=== PATIENT | female | born 1985 | race Caucasian/White ===

== ENCOUNTER 2020-08-10 15:24 | Inpatient (IN) | payer MEDICAID, SELFPAY ==
--- NOTE | 2020-08-10 15:39 | XR_ITS ---
EXAMINATION: XR CHEST CLINICAL INFORMATION: Pain status post fall. COMPARISON: Chest radiographs dated 11/04/2019. TECHNIQUE: 2 views of the chest were obtained. FINDINGS: A prominent infiltrate/consolidation is seen inferiorly in the right upper lobe. A subtle opacity seen along the left cardiac margin. There are no pleural effusions. The heart and mediastinal structures are unremarkable. The osseous structures appear intact. XR/XR chest 2V IMPRESSION: 1. Prominent right upper lobe infiltrate was not seen previously. A small lingular infiltrate cannot be excluded. A follow-up chest radiograph following termination of treatment is recommended to assess for resolution.
--- NOTE | 2020-08-10 15:41 | ED.RECABL ---
HPI - Recheck/Abnormal Lab/Rx General Chief Complaint: Recheck/Abnormal Lab/Rx Stated Complaint: abnormal labs Time Seen by Provider: 08/10/20 15:28 Source: patient and EMS Mode of arrival: EMS Limitations: no limitations History of Present Illness HPI narrative: 34-year-old female with a past medical history of IVDA currently on methadone, iron deficiency anemia, TBI in 2004, HIV, depression here with abnormal labs. Patient tells me she was at [facility] for detox and was released today. She tells me that she had screening labs there which showed that her hemoglobin was low and she was sent to the emergency department for evaluation. She denies any black or bloody stools. Denies blood in the urine or hemoptysis. She does have heavy menses although irregular. 5-7 days of bleeding using a super tampon every 2 hours. tells me she has a history of iron deficiency anemia and has been on iron in the past but is not currently on iron. Denies shortness of breath, palpitations, weakness, dizziness. Of note, she has been off her biktarvey for 2-3 months. She did not restart this week d/t opiate withdrawal symptoms. She does have a PCP and plans to start CONCHIS. Labs reviewed. Hemoglobin this morning 7.7. Hematocrit 25.0. Hemoglobin 08/07 8.0 hematocrit 25.9 Patient also tells me she had a fall sometime in the last 2 weeks striking her right shoulder. No head injury at that time or LOC. C/o persistent right shoulder pain. Also notes feeling some right upper chest discomfort over the last week. Denies injury. Worsened with movement, deep breathing. Productive cough with green/brown sputum x 2-3 days. No fevers, chills, body aches. complaint: abnormal lab Initial visit (ago): day(s) Returns today for: called because of abnormal lab/test Symptoms since prior visit: no new symptoms Associated symptoms: none Related Data Allergies Allergy/AdvReac Type Severity Reaction Status Date / Time No Known Allergies Allergy Unverified 06/07/20 15:19 [No Known Allergies*] Review of Systems Review of Systems: Yes all other systems are reviewed and are negative Constitutional: Constitutional: Reports no additional constitutional complaints, Denies body ache(s), Denies chills, Denies fever(s), Denies headache(s) and Denies weakness Eyes: Eyes: Reports no additional eye complaints and Denies change in vision ENT: Reports system reviewed and no additional complaints, except as documented, Denies dizziness, Denies headache(s), Denies nasal congestion, Denies nasal discharge and Denies neck pain Cardiovascular: Cardiovascular: Reports no additional cardiovascular complaints, Denies chest pain, Denies leg edema and Denies dyspnea Respiratory: Respiratory: Reports no additional respiratory complaints, Denies cough and Denies dyspnea Gastrointestinal: Gastrointestinal: Reports no additional gastrointestinal complaints, Denies abdominal pain, Denies diarrhea, Denies nausea and Denies vomiting Genitourinary: Genitourinary: Reports no additional female genitourinary complaints and Denies urinary incontinence Musculoskeletal: Musculoskeletal: Reports no additional musculoskeletal complaints, Denies back pain, Denies arthralgias, Denies joint swelling, Denies neck pain, Denies numbness and Denies tingling Integumentary/Breasts: Skin/Breast: Reports system reviewed and no additional complaints, except as docu and Denies rash Neurologic: Reports system reviewed and no additional complaints, except as documented, Denies Abnormal speech present, Denies dizziness, Denies headache(s), Denies numbness, Denies tingling and Denies weakness PMFSH Past Medical History Attestation statement: The following information was validated with the patient. Source: obtained from family and nursing notes reviewed Medical History (Updated 08/10/20 @ 15:45 by Zoila Valerio NP) Anemia Depression HIV (human immunodeficiency virus infection) TBI (traumatic brain injury) Social History Social History Advance Directives: No Advance Directives Information Provided: Yes Physical Exam Vital Signs: Vital Signs: Last Vital Signs Temp 98.3 F 08/10/20 16:06 Pulse 117 H 08/10/20 16:06 Resp 18 08/10/20 16:06 BP 144/89 H 08/10/20 16:06 Pulse Ox 94 08/10/20 16:06 Body Mass Index 21.2 Const: General: cooperative, healthy appearing, comfortable and no acute distress Orientation/consciousness: patient oriented x3 Limitations: no limitations HENMT: Head: Yes normal to inspection Ears: hearing grossly normal bilaterally General nose exam: Normal external nose present Face and sinus: Yes normal facial exam Mouth: Normal oral and palatal mucosa present Throat: Yes posterior oropharynx normal Eyes: General: appearance normal, both eyes and all related structures Pupils: Equal, round and reactive pupils present Neck: Neck: Yes normal visual inspection Chest: Other: R anterior chest tender to palpate. No ecchymosis, deformity Chest palpation & inspection: normal inspection of the chest Resp: Effort & Inspection: normal respiratory effort Auscultation: clear to auscultation bilaterally Cardio: Rate: regular rate Rhythm: regular rhythm Peripheral pulses: Peripheral pulses 2+ throughout GI: Inspection: Yes normal to inspection Palpation (GI): Soft to palpation and nontender Auscultation: normal bowel sounds Back/Spine/Pelvis: Thoracic/Lumbar Spine: thoracic and lumbar spine normal to inspection Skin: General skin exam: no rashes or lesions noted Neuro: General: patient oriented x3, no focal motor deficits and normal sensation to monofilament Cranial nerves: Yes Equal, round and reactive pupils present Cognition (Neuro): normal cognition Speech: No Abnormal speech present Gait exam (Neuro): Normal gait present Motor exam (neuro): 5/5 motor strength present throughout Extrem: Other: 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 No obvious deformity, ecchymosis. Full range of motion General: Yes normal to inspection Course Course Course Narrative: patient sent from detox on discharge for low hemoglobin. Patient denies active bleeding. She tells me she has a history of iron deficiency anemia and was taking iron supplements until recently. Denies associated symptoms. Will repeat labs. The patient does tell me that she had several falls over the last few weeks to months and is complaining of some right-sided chest discomfort and right shoulder pain. Stable vital signs. No obvious ecchymosis or deformity. Will check x-rays. 1600- X-ray shows a right upper lobe infiltrate. At this time infection is suspected. Blood cultures and lactic acid ordered. Antibiotics ordered. [id number]-Sign out to Naomi YEBOAH pending ambulation trial, likely admission. MDM - Recheck/Abnormal Lab/Rx Medical Records Attestation: I reviewed the patient's medical records. Lab Data Attestation: I reviewed the patient's lab results. Result diagrams: 08/10/20 16:22 08/10/20 16:22 Labs: Lab Results 08/10/20 08/10/20 08/10/20 Range/Units 16:22 16:22 16:22 WBC 5.3 (4.8-10.8) X10*3/uL RBC 3.74 L (4.20-5.50) X10*6/uL Hgb 8.4 L (12.0-16.0) g/dl Hct 27.8 L (37-47) % MCV 74.3 L (80-98) fL MCH 22.5 L (27.0-33.0) pg MCHC 30.2 L (31.0-35.0) g/dl RDW 15.8 (11.0-16.0) % Plt Count 269 (160-400) X10*3/uL MPV 9.7 (9.4-12.3) fL Immature Gran % (Auto) 0.9 H (0.0-0.4) % Neut % (Auto) 78.4 H (45-73) % Lymph % (Auto) 13.9 L (20-40) % Sanborn % (Auto) 6.6 (2-11) % Eos % (Auto) 0.0 (0-4) % Baso % (Auto) 0.2 (0-2) % Lymph # (Auto) 0.7 L (1.2-4.9) X10*3/uL Sanborn # (Auto) 0.4 (0.1-1.2) X10*3/uL Eos # (Auto) 0.0 (0.0-0.4) X10*3/uL Baso # (Auto) 0.0 (0.0-0.2) X10*3/uL Abs Immat Gran (auto) 0.05 H (0.00-0.03) X10*3/uL Absolute Neuts (auto) 4.2 (2.0-8.3) X10*3/uL Absolute Nucleated RBC 0.000 (0.0-0.012) X10*3/uL Nucleated RBC % (auto) 0.0 (0.0-0.2) /100WBC PT 16.8 H (10.8-13.0) SEC INR 1.4 H (0.9-1.1) Sodium 130 L (135-145) mmol/L Potassium 4.6 (3.3-5.1) mmol/l Chloride 96 (96-108) mmol/L Carbon Dioxide 27 (22-29) mmol/L Anion Gap 12 (12-20) BUN 18 H (9-16) mg/dL Creatinine 0.79 (0.5-1.4) mg/dL Estim Creat Clear Calc 81.4 Estimated GFR > 60 Random Glucose 81 (60-115) mg/dL Lactic Acid (0.5-2.0) mmol/L Calcium 7.7 L (8.4-10.2) mg/dL Total Bilirubin 0.5 (0.0-1.0) mg/dL Direct Bilirubin 0.2 (0.0-0.5) mg/dL AST 25 (5-31) U/L ALT 15 (0-31) U/L Alkaline Phosphatase 134 H (39-117) U/L Total Protein 8.9 H (6.5-8.0) g/dL Albumin 2.6 L (3.5-5.0) g/dL 11/20/20 Range/Units 16:22 WBC (4.8-10.8) X10*3/uL RBC (4.20-5.50) X10*6/uL Hgb (12.0-16.0) g/dl Hct (37-47) % MCV (80-98) fL MCH (27.0-33.0) pg MCHC (31.0-35.0) g/dl RDW (11.0-16.0) % Plt Count (160-400) X10*3/uL MPV (9.4-12.3) fL Immature Gran % (Auto) (0.0-0.4) % Neut % (Auto) (45-73) % Lymph % (Auto) (20-40) % Sanborn % (Auto) (2-11) % Eos % (Auto) (0-4) % Baso % (Auto) (0-2) % Lymph # (Auto) (1.2-4.9) X10*3/uL Sanborn # (Auto) (0.1-1.2) X10*3/uL Eos # (Auto) (0.0-0.4) X10*3/uL Baso # (Auto) (0.0-0.2) X10*3/uL Abs Immat Gran (auto) (0.00-0.03) X10*3/uL Absolute Neuts (auto) (2.0-8.3) X10*3/uL Absolute Nucleated RBC (0.0-0.012) X10*3/uL Nucleated RBC % (auto) (0.0-0.2) /100WBC PT (10.8-13.0) SEC INR (0.9-1.1) Sodium (135-145) mmol/L Potassium (3.3-5.1) mmol/l Chloride (96-108) mmol/L Carbon Dioxide (22-29) mmol/L Anion Gap (12-20) BUN (9-16) mg/dL Creatinine (0.5-1.4) mg/dL Estim Creat Clear Calc Estimated GFR Random Glucose (60-115) mg/dL Lactic Acid 1.0 (0.5-2.0) mmol/L Calcium (8.4-10.2) mg/dL Total Bilirubin (0.0-1.0) mg/dL Direct Bilirubin (0.0-0.5) mg/dL AST (5-31) U/L ALT (0-31) U/L Alkaline Phosphatase (39-117) U/L Total Protein (6.5-8.0) g/dL Albumin (3.5-5.0) g/dL Imaging Data Chest x-ray: Attestation: I personally reviewed and interpreted this imaging study as follows: Radiologist's impression: XAMINATION: XR CHEST CLINICAL INFORMATION: Pain status post fall. COMPARISON: Chest radiographs dated 11/04/2019. TECHNIQUE: 2 views of the chest were obtained. FINDINGS: A prominent infiltrate/consolidation is seen inferiorly in the right upper lobe. A subtle opacity seen along the left cardiac margin. There are no pleural effusions. The heart and mediastinal structures are unremarkable. The osseous structures appear intact. XR/XR chest 2V IMPRESSION: 1. Prominent right upper lobe infiltrate was not seen previously. A small lingular infiltrate cannot be excluded. A follow-up chest radiograph following termination of treatment is recommended to assess for resolution.
--- NOTE | 2020-08-10 15:51 | XR_ITS ---
EXAMINATION: XR SHOULDER, RIGHT CLINICAL INFORMATION: Right shoulder pain status post fall. COMPARISON: None TECHNIQUE: AP external rotation, Grashey, scapular Y, and axillary views of the right shoulder. FINDINGS: There is no acute fracture or dislocation. The right glenohumeral and acromioclavicular joints are intact. The right clavicle is intact. The visualized right upper ribs are intact. An infiltrate is noted in the right upper lobe. XR/XR shoulder RT min 2V IMPRESSION: 1. Unremarkable right shoulder. 2. Right upper lobe infiltrate. Please refer to the report from chest radiographs from today for detailed findings.
[2020-08-10 16:06] VITALS: BP 144/89; PULSE 117; RESP 18; TEMP 36.8; O2SAT 94; BMI 21.2
[2020-08-10 16:28] LABS: MANUAL DIFF FLAG NO
[2020-08-10 16:31] LABS: Basophils Percent Auto 0.2 % (0-2); Hematocrit 27.8 % (37-47); Hemoglobin 8.4 g/dl (12.0-16.0); Imm Gran Abs Auto 0.05 X10*3/uL (0.00-0.03); Imm Gran Pct Auto 0.9 % (0.0-0.4); Lymphocytes Absolute Auto 0.7 X10*3/uL (1.2-4.9); Lymphocytes Percent Auto 13.9 % (20-40); Mean Corpuscular HGB Conc 30.2 g/dl (31.0-35.0); Mean Corpuscular Hemoglobin 22.5 pg (27.0-33.0); Mean Corpuscular Volume 74.3 fL (80-98); Mean Platelet Volume 9.7 fL (9.4-12.3); Monocytes Absolute Auto 0.4 X10*3/uL (0.1-1.2); Monocytes Percent Auto 6.6 % (2-11); Neutrophils Absolute Auto 4.2 X10*3/uL (2.0-8.3); Neutrophils Percent Auto 78.4 % (45-73); Platelet Count 269 X10*3/uL (160-400); Red Blood Count 3.74 X10*6/uL (4.20-5.50); Red Cell Distribution Width 15.8 % (11.0-16.0); White Blood Count 5.3 X10*3/uL (4.8-10.8)
[2020-08-10 16:34] LABS: INTERNATIONAL NORM RATIO 1.4 (0.9-1.1); Prothrombin Time 16.8 SEC (10.8-13.0)
[2020-08-10] MEDS: Piperacillin Sodium/Tazobactam 4.5 GM in 0.9 % Sodium Chloride 100 ML IV (16:55)
[2020-08-10 17:07] LABS: Alanine Aminotransferase 15 U/L (0-31); Albumin Level 2.6 g/dL (3.5-5.0); Alkaline Phosphatase 134 U/L (39-117); Anion Gap 12 (12-20); Aspartate Amino Transferase 25 U/L (5-31); Bilirubin Direct 0.2 mg/dL (0.0-0.5); Bilirubin Total 0.5 mg/dL (0.0-1.0); Blood Urea Nitrogen 18 mg/dL (9-16); Calcium 7.7 mg/dL (8.4-10.2); Carbon Dioxide 27 mmol/L (22-29); Chloride 96 mmol/L (96-108); Creatinine Clr Calc Pharmacy 81.4; Estimated Glomerular Filt Rate > 60; Glucose Random 81 mg/dL (60-115); Potassium 4.6 mmol/l (3.3-5.1); Sodium 130 mmol/L (135-145); Total Protein 8.9 g/dL (6.5-8.0)
[2020-08-10 17:13] LABS: COVID-19 Test Negative (Negative)
[2020-08-10] MEDS: vancomycin HCL 750 MG in 0.9 % Sodium Chloride 250 ML 265 MG IV (17:31)
[2020-08-10] MEDS: 0.9 % Sodium Chloride 1,000 ML 999 ML IV (17:32)
--- NOTE | 2020-08-10 19:04 | ECG_ITS ---
Test Reason : BASLINE TACHY Blood Pressure : / mmHG Vent. Rate : 101 BPM Atrial Rate : 101 BPM P-R Int : 154 ms QRS Dur : 084 ms QT Int : 344 ms P-R-T Axes : 048 035 038 degrees QTc Int : 446 ms Sinus tachycardia Otherwise normal ECG When compared with ECG of 06-JAN-2018 05:24, No significant change was found Heart rate has increased Referred By: Naomi Mcqueen Electronically Signed By:INDIRA ATKINSON MD
[2020-08-10 20:00] VITALS: BP 141/88; PULSE 105; RESP 18; TEMP 36.9; O2SAT 93
[2020-08-10 21:09] VITALS: BP 149/94; PULSE 98; RESP 18; TEMP 36.9; O2SAT 94
[2020-08-10] MEDS: Gabapentin 600 MG TABLET 1200 MG PO (22:21)
[2020-08-10 22:37] LABS: Adenovirus PCR Not Detected (Not Detect.); Bordetella parapertussis PCR Not Detected (Not Detect.); Bordetella pertussis PCR Not Detected (Not Detect.); Chlamydia pneumoniae PCR Not Detected (Not Detect.); Coronavirus 229E PCR Not Detected (Not Detect.); Coronavirus HKU1 PCR Not Detected (Not Detect.); Coronavirus NL63 PCR Not Detected (Not Detect.); Coronavirus OC43 PCR Not Detected (Not Detect.); Human metapneumovirus PCR Not Detected (Not Detect.); Influenza A PCR Not Detected (Not Detect.); Influenza B PCR Not Detected (Not Detect.); Mycoplasma pneumoniae PCR Not Detected (Not Detect.); Parainfluenza 1 PCR Not Detected (Not Detect.); Parainfluenza 2 PCR Not Detected (Not Detect.); Parainfluenza 3 PCR Not Detected (Not Detect.); Parainfluenza 4 PCR Not Detected (Not Detect.); RSV PCR Not Detected (Not Detect.); Rhino/Enterovirus PCR Not Detected (Not Detect.); SARS-CoV-2 PCR Not Detected (Not Detect.)
[2020-08-10 22:56] VITALS: BP 151/93; PULSE 95; RESP 18; TEMP 37.1; O2SAT 95
--- NOTE | 2020-08-10 23:29 | P.HPHOSP_ITS ---
History of Present Illness Date of Service: 08/10/20 Chief Complaint: SOB 34 y/o female with an extensive PMHX including HIV who presented from home due to SOB. Per history provided by the patient, for the past 1 week has been having a right upper chest discomfort, pressure like, none radiating, 5-6/10 in intensi ty, associated with a dry cough which is now productive, SOB and diarrhea. Patient denies any episodes of fever or chills, sick contacts or recent travel. Patient has a significant hx of multiple drug abuse including crack and marijuana. Was in detox for the past 5 days and was discharged today. On presentation to the ED patient was found to be initially tachycardic and hypertensive, now BP of 151/93 mmHg and HR of 95. Hgb of 8.4 with baseline of 10.4, Na of 130, CXR positive for RUL consolidation concerning for PNA. One dose of Zosyn and Rocephin were given per ED attending. Decision for admission given. Patient seen and examined at the bedside, laying down in bed in no acute distress. ROS as above otherwise negative. Physical exam positive for malnourished female, otherwise unremarkable. PMHX: HIV - non compliant, last CD4 161 on 11/10 anxiety HTN opiate dependence PSx: Right carpal tunnel release tonsillectomy Toxic habits: Reports smoking 1-3 cigarettes a day, Using marijuana and crack. No hx of alc ohol abuse Review of Systems Constitutional: Constitutional: Reports poor appetite ENT: Denies dizziness Cardiovascular: Cardiovascular: Reports dyspnea Respiratory: Respiratory: Reports cough and Reports dyspnea Gastrointestinal: Gastrointestinal: Reports diarrhea Musculoskeletal: Musculoskeletal: Denies numbness and Denies tingling Neurologic: Reports system reviewed and no additional complaints, except as documented, Denies Abnormal speech present, Denies dizziness, Denies numbness and Denies tingling [facility] Medical History (Updated 08/10/20 @ 23:46 by Dean Marquez MD) Anemia Depression HIV (human immunodeficiency virus infection) TBI (traumatic brain injury) Functional capacity: independent ambulation Family history: reviewed and not pertinent Social History Alcohol intake: never Smoking Status: Current every day smoker Use of substances other than those prescribed or required for medical reasons: Yes Substance Use Type: Crack/Cocaine and Heroin Substance Use Frequency: Chronic Longstanding Last Used Substance: Weeks (ago) Any prior treatment program specific to substance use: Yes Advance Directives: No Advance Directives Information Provided: Yes Meds Allergies Allergy/AdvReac Type Severity Reaction Status Date / Time No Known Allergies Allergy Unverified 06/07/20 15:19 [No Known Allergies*] Home Medications Medication Instructions Recorded Confirmed Type aripiprazole 15 mg PO DAILY 08/10/20 08/10/20 History baclofen 10 mg PO BID PRN 08/10/20 08/10/20 History ihpmmzjbi-hymgetjy-yhhwcee ala 1 tab PO DAILY 08/10/20 08/10/20 History [Biktarvy] cholecalciferol (vitamin D3) 50 mcg PO DAILY 08/10/20 08/10/20 History fluoxetine 10 mg PO DAILY 08/10/20 08/10/20 History fluoxetine 20 mg PO DAILY 08/10/20 08/10/20 History gabapentin 1,200 mg PO TID 08/10/20 08/10/20 History hydralazine 10 mg PO BID PRN 08/10/20 08/10/20 History hydroxyzine pamoate 25 mg PO BID PRN 08/10/20 08/10/20 History lisinopril 40 mg PO DAILY 08/10/20 08/10/20 History sulfamethoxazole-trimethoprim 1 tab PO 3XW 08/10/20 08/10/20 History [Bactrim DS] Physical Exam Vital Signs and Narrative: Vital Signs: Last Vital Signs Temp 98.7 F 08/10/20 22:56 Pulse 95 08/10/20 22:56 Resp 18 08/10/20 22:56 BP 151/93 H 08/10/20 22:56 Pulse Ox 95 08/10/20 22:56 Body Mass Index 21.2 Const: General: cooperative, comfortable and no acute distress Orientation/consciousness: oriented to person, oriented to place and oriented to time HENMT: Head: Yes normal to inspection Eyes: General: appearance normal, both eyes and all related structures Neck: Yes normal visual inspection Chest: Chest palpation & inspection: normal inspection of the chest Resp: Effort & Inspection: normal respiratory effort Cardio: Jugular venous distension: no JVD Rate: regular rate Rhythm: regular rhythm Heart sounds: S1 normal heart sound present and S2 normal heart sound present GI: Inspection: Yes normal to inspection Skin: General skin exam: no rashes or lesions noted Neuro: General: oriented to person, oriented to place and oriented to time Cognition (Neuro): normal cognition Speech: No Abnormal speech present Motor exam (neuro): 5/5 motor strength present throughout Extrem: General: Yes normal to inspection Results Labs CBC and Chem 7: 08/10/20 16:22 08/10/20 16:22 Labs: Laboratory Results - last 24 hr 08/10/20 08/10/20 08/10/20 16:22 16:22 16:22 MCV 74.3 L MCH 22.5 L MCHC 30.2 L RDW 15.8 Plt Count 269 MPV 9.7 Immature Gran % (Auto) 0.9 H Neut % (Auto) 78.4 H Lymph % (Auto) 13.9 L Gibson % (Auto) 6.6 Eos % (Auto) 0.0 Baso % (Auto) 0.2 Lymph # (Auto) 0.7 L Gibson # (Auto) 0.4 Eos # (Auto) 0.0 Baso # (Auto) 0.0 Abs Immat Gran (auto) 0.05 H Absolute Neuts (auto) 4.2 Absolute Nucleated RBC 0.000 Nucleated RBC % (auto) 0.0 PT 16.8 H INR 1.4 H Anion Gap 12 Estim Creat Clear Calc 81.4 Estimated GFR > 60 Random Glucose 81 Lactic Acid Calcium 7.7 L Total Bilirubin 0.5 Direct Bilirubin 0.2 AST 25 ALT 15 Alkaline Phosphatase 134 H Total Protein 8.9 H Albumin 2.6 L COVID-19 (TIKA) COVID-19 Clin Com 08/10/20 08/10/20 16:22 16:46 MCV MCH MCHC RDW Plt Count MPV Immature Gran % (Auto) Neut % (Auto) Lymph % (Auto) Gibson % (Auto) Eos % (Auto) Baso % (Auto) Lymph # (Auto) Gibson # (Auto) Eos # (Auto) Baso # (Auto) Abs Immat Gran (auto) Absolute Neuts (auto) Absolute Nucleated RBC Nucleated RBC % (auto) PT INR Anion Gap Estim Creat Clear Calc Estimated GFR Random Glucose Lactic Acid 1.0 Calcium Total Bilirubin Direct Bilirubin AST ALT Alkaline Phosphatase Total Protein Albumin COVID-19 (TIKA) Negative COVID-19 Clin Com See Note Imaging Radiologist's Impressions: Impressions Chest X-Ray 08/10/20 15:39 IMPRESSION: 1. Prominent right upper lobe infiltrate was not seen previously. A small lingular infiltrate cannot be excluded. A follow-up chest radiograph following termination of treatment is recommended to assess for resolution. Shoulder X-Ray 08/10/20 15:51 IMPRESSION: 1. Unremarkable right shoulder. 2. Right upper lobe infiltrate. Please refer to the report from chest radiographs from today for detailed findings. Assessment and Plan (1) CAP (community acquired pneumonia): Status: Acute Continue with Rocephin and Doxy for gram neg and atypical coverage Follow up respiratory panel Covid negative Follow up Bcx Infectious disease consult in the am (2) Anemia: Status: Inactive Hgb of 8.4 from 10 which might be related to hx of HIV follow up anemia work up. No evidence of bleeding at present (3) HIV (human immunodeficiency virus infection): Status: Inactive Not compliant with her medications follow up CD4 count in the am Infectious disease consult in the am continue with bactrim as PCP ppx (4) Hyponatremia: Status: Acute NA of 130 likely secondary to dehydration but could be a component of an atypical PNA Follow up NA level after hydration given in the ED and monitor closely (5) Uncontrolled hypertension: Status: Acute likely secondary to patient not been compliant with her meds resume home meds (6) Dementia: Status: Acute continue with aripiprazole home dose (7) Depression: Status: Inactive continue with fluoxetine home dose (reconcile with outpatient pharmacy the dose) (8) Muscle spasms of both lower extremities: Status: Acute continue with baclofen home dose
[2020-08-11] VITALS (7 sets, daily range): BP systolic 103–156; BP diastolic 71–88; PULSE 68–106; RESP 16–18; TEMP 36.4–37.1; O2SAT 91–96
--- NOTE | 2020-08-11 | CT_ITS ---
EXAMINATION: CT CHEST WITHOUT CONTRAST CLINICAL INFORMATION: Cough and shortness of breath. Right upper lobe opacity. COMPARISON: Most recent chest radiograph dated 08/10/[address] chest dated 11/09/2019. TECHNIQUE: Multidetector volumetric CT imaging of the chest was done. Axial MIP volume rendering provided. Sagittal and coronal reformatted images were obtained. This CT examination was performed using dose optimization techniques as appropriate, variously including the following: *Automated exposure control *Adjustment of mA and/or kV according to patient size (this includes techniques or standardized protocols for targeted exams where dose is matched to indication/reason for exam; i.e. extremities or head) *Use of iterative reconstruction technique DLP: 188 mGy-cm FINDINGS: RECAPPER: Confluent right upper lobe airspace opacity with air bronchograms. LUNGS: Large consolidative airspace opacity with air bronchograms within the posterior aspect of the right upper lobe and extending into the right middle lobe. Redemonstration of bronchiectasis within the right middle lobe and left lingula with associated airspace opacities. More central, similar-appearing airspace opacity within the superior aspect of the right lower lobe. Findings are similar when compared to the chest radiograph dated 08/10/2020 and new/increased when compared to the CT chest dated 11/09/2019. There are scattered additional patchy/nodular airspace opacities within the lower lobes, slightly decreased on the left when compared to the prior CT. MEDIASTINUM: No cardiomegaly. Trace pericardial effusion, new when compared to the prior examination. Increasing superior mediastinal lymphadenopathy with the largest to the right of the distal trachea measuring 2.3 x 1.9 cm in greatest dimension. Evaluation for lymphadenopathy is somewhat limited without IV contrast. PLEURA: No pleural effusion or pneumothorax. AXILLA: No lymphadenopathy. UPPER ABDOMEN: Splenomegaly is redemonstrated. Otherwise, the visualized upper abdominal structures are unremarkable. OSSEOUS STRUCTURES: Unremarkable. CT/CT chest wo con IMPRESSION: 1. Large, confluent airspace consolidations within the right upper lobe and extending into the right middle lobe as well as the superior aspect of the right lower lobe. Findings are new when compared to the prior CT dated 11/09/2019. 2. Redemonstration of volume loss with consolidations and air bronchograms within the right middle lobe and left lingula. Additional patchy, nodular airspace opacities are seen bilaterally, decreased within the left lower lobe when compared to the prior examination. 3. Increasing superior mediastinal lymphadenopathy. 4. Splenomegaly is redemonstrated.
[2020-08-11] MEDS: 0.9 % Sodium Chloride Flush 3 ML SYRINGE IVFLUSH ×4 (02:40→23:49)
[2020-08-11] MEDS: cefTRIAXone sodium 1 GM in 0.9 % Sodium Chloride 50 ML IV (05:49)
[2020-08-11] MEDS: Doxycycline Hyclate 100 MG in 0.9 % Sodium Chloride 250 ML 166.67 MG IV ×2 (06:28→18:45)
[2020-08-11] MEDS: Heparin Sodium,Porcine 5,000 UNIT/ML VIAL 5000 UNIT SUBCUT ×2 (06:31→21:49)
[2020-08-11] MEDS: FLUoxetine HCl 20 MG CAPSULE PO (08:45)
[2020-08-11] MEDS: Cholecalciferol (Vitamin D3) 25 MCG TABLET 50 MCG PO (08:45)
[2020-08-11] MEDS: FLUoxetine HCl 10 MG CAPSULE PO (08:45)
[2020-08-11] MEDS: Gabapentin 600 MG TABLET 1200 MG PO ×3 (08:45→21:49)
[2020-08-11] MEDS: lisinopriL 40 MG TABLET PO (08:46)
[2020-08-11 08:58] LABS: Eosinophils Percent Auto 0.4 % (0-4); Hematocrit 23.7 % (37-47); Hemoglobin 7.3 g/dl (12.0-16.0); Imm Gran Abs Auto 0.05 X10*3/uL (0.00-0.03); Lymphocytes Absolute Auto 0.4 X10*3/uL (1.2-4.9); Lymphocytes Percent Auto 16.4 % (20-40); MANUAL DIFF FLAG SCAN; Mean Corpuscular HGB Conc 30.8 g/dl (31.0-35.0); Mean Corpuscular Hemoglobin 22.9 pg (27.0-33.0); Mean Corpuscular Volume 74.3 fL (80-98); Mean Platelet Volume 10.1 fL (9.4-12.3); Monocytes Absolute Auto 0.2 X10*3/uL (0.1-1.2); Neutrophils Absolute Auto 1.8 X10*3/uL (2.0-8.3); Neutrophils Percent Auto 73.2 % (45-73); Platelet Count 256 X10*3/uL (160-400); Red Blood Count 3.19 X10*6/uL (4.20-5.50); Red Cell Distribution Width 15.6 % (11.0-16.0); SCAN SMEAR FLAG 1
[2020-08-11 08:59] LABS: Immature Retic Fraction 17.8 % (3.0-15.9); Retic HGB Equivalent 21.5 pg (30.0-35.0); Reticulocyte Percent 1.3 % (0.5-1.8)
[2020-08-11 09:23] LABS: White Blood Count 2.5 X10*3/uL (4.8-10.8)
[2020-08-11 09:31] LABS: SLIDE REVIEW VERIFIED
[2020-08-11 09:36] LABS: Iron 17 mcg/dL (30-160); Percent Iron Saturation 7 % (15-50); Total Iron Binding Capacity 227 mcg/dL (228-428); Unsaturated Iron Binding 210 ug/dL
[2020-08-11 09:43] LABS: Ferritin 155 ng/mL (10-122)
--- NOTE | 2020-08-11 09:46 | MHC.CM.PN ---
PATIENT IS INDEPENDENT WITH HER ADLS. NO DME OR VNA SERVICES. PCP IS THROUGH [facility]. PLAN IS HOME NO SERVICES. PATIENT IS ABLE TO SELF ARRANGE TRANSPORT BUT AWARE THAT SHE CAN USE [facility] DURING THE WEEK IF NEEDED. CONTACT CARD LEFT WITH PATIENT.
[2020-08-11 09:56] LABS: Anion Gap 9 (12-20); Blood Urea Nitrogen 12 mg/dL (9-16); Carbon Dioxide 23 mmol/L (22-29); Chloride 101 mmol/L (96-108); Creatinine Clr Calc Pharmacy 91.9; Estimated Glomerular Filt Rate > 60; Glucose Random 79 mg/dL (60-115); Potassium 4.2 mmol/l (3.3-5.1); Sodium 129 mmol/L (135-145)
[2020-08-11 10:14] LABS: Calcium 7.4 mg/dL (8.4-10.2)
--- NOTE | 2020-08-11 11:23 | P.PNIM_ITS ---
Subjective Subjective Date of Service: 08/11/20 Interval History: patient seen and examined at bedside patient reported shortness of breath and cough Physical Exam Vital Signs: Vital Signs: Last Vital Signs Temp 97.9 F 08/11/20 07:09 Pulse 94 08/11/20 07:09 Resp 16 08/11/20 07:09 BP 152/86 H 08/11/20 07:09 Pulse Ox 91 L 08/11/20 07:09 Body Mass Index 21.2 Const: Nutritional Appearance: cachectic and malnourished Chest: Chest palpation & inspection: normal inspection of the chest Resp: Auscultation: rhonchi Cardio: Jugular venous distension: no JVD Heart sounds: S1 normal heart sound present and S2 normal heart sound present GI: Inspection: Yes normal to inspection Auscultation: normal bowel sounds Skin: General skin exam: no rashes or lesions noted Objective Data Current Medications Generic Name Dose Route Start Last Admin Trade Name Freq PRN Reason Stop Dose Admin Aripiprazole 15 mg 08/11/20 21:00 Aripiprazole 15 Mg Tablet PO DAILY JUANIS Baclofen 10 mg 08/10/20 20:38 Baclofen 10 Mg Tablet PO BID PRN Muscle Spasm Bictegravir/Emtricitabine/Tenofovir 1 tab 08/11/20 09:00 08/11/20 08:46 Bictegrav/Emtricit/Tenofov Ala 1 Tab Tablet PO 1 tab DAILY JUANIS Administration Fluoxetine HCl 10 mg 08/11/20 09:00 08/11/20 08:45 Fluoxetine Hcl 10 Mg Capsule PO 10 mg DAILY JUANIS Administration Fluoxetine HCl 20 mg 08/11/20 09:00 08/11/20 08:45 Fluoxetine Hcl 20 Mg Capsule PO 20 mg DAILY JUANIS Administration Gabapentin 1,200 mg 08/10/20 21:00 08/11/20 08:45 Gabapentin 600 Mg Tablet PO 1,200 mg TID JUANIS Administration Heparin Sodium (Porcine) 5,000 unit 08/11/20 06:00 08/11/20 06:31 Heparin Sodium,Porcine 5,000 Unit/Ml Vial SUBCUT 5,000 unit Q8H JUANIS Administration Hydralazine HCl 10 mg 08/10/20 20:38 Hydralazine Hcl 10 Mg Tablet PO BID PRN Anxiety Protocol Ceftriaxone Sodium 1 gm/ 50 mls @ 100 mls/hr 08/11/20 06:00 08/11/20 06:34 Sodium Chloride IV Infused Q24H JUANIS Infusion Doxycycline Hyclate 100 mg/ 250 mls @ 166.67 mls/hr 08/11/20 06:00 08/11/20 08:47 Sodium Chloride IV Infused Q12H JUANIS Infusion Lisinopril 40 mg 08/11/20 09:00 08/11/20 08:46 Lisinopril 40 Mg Tablet PO 40 mg DAILY JUANIS Administration Protocol Methadone HCl 40 mg 08/11/20 09:30 08/11/20 10:53 Methadone Hcl 1 Mg/0.1 Ml Oral.Conc PO 40 mg DAILY JUANIS Administration Pharmacy Consult 1 each 08/10/20 16:33 Consult Rx Perform Med Rec MISCELLANE ONCE PRN Consult order Sodium Chloride 3 ml 08/11/20 01:57 08/11/20 08:46 0.9 % Sodium Chloride Flush 3 Ml Syringe IVFLUSH 3 ml QSHIFT JUANIS Administration Trimethoprim/Sulfamethoxazole 1 tab 08/13/20 10:00 Sulfamethox/Trimeth 800/160 1 Tab Tablet PO MoWeFr@1000 [facility] Vitamin D 50 mcg 08/11/20 09:00 08/11/20 08:45 Cholecalciferol (Vitamin D3) 25 Mcg Tablet PO 50 mcg DAILY JUANIS Administration Labs CBC & Chem 7: 08/11/20 07:57 08/11/20 07:57 Microbiology Microbiology Results: Microbiology 08/10/20 16:46 Blood - Venous Blood Culture - Preliminary 08/10/20 16:22 Blood - Venous Blood Culture - Preliminary Assessment and Plan (1) CAP (community acquired pneumonia): Status: Acute (2) Hyponatremia: Status: Acute (3) Uncontrolled hypertension: Status: Acute (4) Dementia: Status: Acute Assessment and Plan: 34-year-old female history of drug abuse and HIV noncompliant with medication presented with cough and shortness of breath found to have right upper lobe infiltrate Right upper lobe pneumonia rule out comunity acquired vs pcp continue Rocephin and Zithromax continue Bactrim follow-up cultures id consult pending HIV noncompliant continue antiviral id consult pending 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
--- NOTE | 2020-08-11 14:49 | P.CNID_ITS ---
History of Present Illness Data of Consult Service Date: 08/11/20 Primary Care Provider: Chaya Kay DO HPI Reason for consult: AIDS, anemia,pneumonia She presents to hospital after sent by Methadone clinic due to hematocrit of 23 She has heavy menses She has not taken Biktarvy for HIV for two months She has been taking Bactrim for PCP prevention She is not hypoxic She has occasional greenish sputum Review of Systems Constitutional: Constitutional: Denies headache(s) and Denies weakness ENT: Denies dizziness and Denies headache(s) Cardiovascular: Cardiovascular: Denies dyspnea Respiratory: Respiratory: Denies dyspnea Musculoskeletal: Musculoskeletal: Denies numbness and Denies tingling Neurologic: Reports system reviewed and no additional complaints, except as documented, Denies Abnormal speech present, Denies dizziness, Denies headache(s), Denies numbness, Denies tingling and Denies weakness PMFSH Past Medical History Medical History Anemia Depression HIV (human immunodeficiency virus infection) TBI (traumatic brain injury) Functional capacity: independent ambulation Family History Family history: reviewed and not pertinent Social History Social History Household Members: Significant Other Housing: House Alcohol intake: never Smoking Status: Current every day smoker Tobacco Type: Cigarette Smoked in Last 30 Days: Yes Smoking Quit Date: one week ago Patient Interested in Nicotine Replacement: No Patient Given Instructions on How to Stop Smoking: Yes Date Education Initiated: 08/11/20 Second Hand Smoke Exposure: No Use of substances other than those prescribed or required for medical reasons: Yes Substance Use Type: Heroin Substance Use Frequency: Chronic Longstanding Last Used Substance: Days (ago) Last Used Substance Other:: has been in detox previous week Currently Displaying Signs/Symptoms of Drug Intoxication Withdrawal: No Any prior treatment program specific to substance use: Yes Have you been hit, kicked, punched, or otherwise hurt by someone within the past year? If so, by whom?: No Do you feel safe in your current relationship?: Yes Is there a partner from a previous relationship who is making you feel unsafe now?: No Are you made to feel afraid or neglected: No Advance Directives: No Advance Directives Information Provided: Yes Do you have thoughts of harming others: None Do you have a plan to hurt others: No Plan Recently lost weight without trying: No service: No Current occupational status: unemployed Meds Allergies Allergy/AdvReac Type Severity Reaction Status Date / Time No Known Allergies Allergy Unverified 06/07/20 15:19 [No Known Allergies*] Home Medications Medication Instructions Recorded Confirmed Type aripiprazole 15 mg PO DAILY 08/10/20 08/10/20 History baclofen 10 mg PO BID PRN 08/10/20 08/10/20 History fabqzcpel-fvmjazqk-swjttsr ala 1 tab PO DAILY 08/10/20 08/10/20 History [Biktarvy] cholecalciferol (vitamin D3) 50 mcg PO DAILY 08/10/20 08/10/20 History fluoxetine 10 mg PO DAILY 08/10/20 08/10/20 History fluoxetine 20 mg PO DAILY 08/10/20 08/10/20 History gabapentin 1,200 mg PO TID 08/10/20 08/10/20 History hydralazine 10 mg PO BID PRN 08/10/20 08/10/20 History hydroxyzine pamoate 25 mg PO BID PRN 08/10/20 08/10/20 History lisinopril 40 mg PO DAILY 08/10/20 08/10/20 History sulfamethoxazole-trimethoprim 1 tab PO 3XW 08/10/20 08/10/20 History [Bactrim DS] Physical Exam Vital Signs: Vital Signs: Last Vital Signs Temp 97.9 F 08/11/20 07:09 Pulse 94 08/11/20 07:09 Resp 18 08/11/20 12:00 BP 152/86 H 08/11/20 07:09 Pulse Ox 91 L 08/11/20 07:09 Body Mass Index 21.2 Const: General: cooperative HENMT: Head: Yes normal to inspection Resp: Effort & Inspection: normal respiratory effort Cardio: Rate: regular rate Rhythm: regular rhythm GI: Inspection: Yes normal to inspection Skin: General skin exam: no rashes or lesions noted Neuro: Speech: No Abnormal speech present Extrem: General: Yes normal to inspection Assessment and Plan (1) Anemia: Problem details: Possibly due to heavy menses as well as HIV Status: Acute [employer] See Antenna Installer Restart Biktarvy (2) CAP (community acquired pneumonia): Problem details: She has had terminal gauger supervisor right lung scarring/bronchiectasis,no specific organism She possibly has some pneumonia in this area Status: Acute Continue antibiotics possible 2-3 d IV Po Levaquin or Doxycycline for a week on discharge and prophylactic Bactrim three times a week Await CT chest (3) HIV (human immunodeficiency virus infection): Status: Acute Results Labs CBC & Chem 7: 08/11/20 07:57 08/11/20 07:57 Labs: Short CBC 08/10/20 08/11/20 Range/Units 16:22 07:57 WBC 5.3 2.5 L (4.8-10.8) X10*3/uL Hgb 8.4 L 7.3 L (12.0-16.0) g/dl Hct 27.8 L 23.7 L (37-47) % Plt Count 269 256 (160-400) X10*3/uL BMP 08/10/20 08/11/20 16:22 07:57 Sodium 130 L 129 L Potassium 4.6 4.2 Chloride 96 101 Carbon Dioxide 27 23 BUN 18 H 12 Creatinine 0.79 0.70 Calcium 7.7 L 7.4 L Liver Function 08/10/20 Range/Units 16:22 Total Bilirubin 0.5 (0.0-1.0) mg/dL Direct Bilirubin 0.2 (0.0-0.5) mg/dL AST 25 (5-31) U/L ALT 15 (0-31) U/L Alkaline Phosphatase 134 H (39-117) U/L Albumin 2.6 L (3.5-5.0) g/dL Microbiology Microbiology Results: Microbiology 08/10/20 16:46 Blood - Venous Blood Culture - Preliminary 08/10/20 16:22 Blood - Venous Blood Culture - Preliminary
[2020-08-11 17:07] LABS: Amphetamine Screen Urine Not Detected (Not Detect); Barbiturates, Urine Not Detected (Not Detect); Benzodiazepines Screen Urine Not Detected (Not Detect); Cannabinoid Screen Urine POSITIVE (Not Detect); Cocaine Screen Urine Not Detected (Not Detect); Opiate Screen Urine Not Detected (Not Detect); Phencyclidine Screen Urine Not Detected (Not Detect)
[2020-08-11] MEDS: ARIPiprazole 15 MG TABLET PO (21:49)
[2020-08-12] VITALS (8 sets, daily range): BP systolic 132–162; BP diastolic 83–92; PULSE 81–109; RESP 16–20; TEMP 36.2–36.8; O2SAT 92–99
[2020-08-12] MEDS: cefTRIAXone sodium 1 GM in 0.9 % Sodium Chloride 50 ML IV (05:55)
[2020-08-12] MEDS: Heparin Sodium,Porcine 5,000 UNIT/ML VIAL 5000 UNIT SUBCUT (06:24)
[2020-08-12] MEDS: Doxycycline Hyclate 100 MG in 0.9 % Sodium Chloride 250 ML 166.7 MG IV (06:27)
[2020-08-12] MEDS: Gabapentin 600 MG TABLET 1200 MG PO ×3 (08:20→20:13)
[2020-08-12] MEDS: 0.9 % Sodium Chloride Flush 3 ML SYRINGE IVFLUSH ×3 (08:20→23:36)
[2020-08-12] MEDS: FLUoxetine HCl 10 MG CAPSULE PO (08:21)
[2020-08-12] MEDS: FLUoxetine HCl 20 MG CAPSULE PO (08:21)
[2020-08-12] MEDS: lisinopriL 40 MG TABLET PO (08:21)
[2020-08-12] MEDS: Cholecalciferol (Vitamin D3) 25 MCG TABLET 50 MCG PO (08:22)
[2020-08-12 12:13] LABS: OBS Int Ctl Valid YES; OBS1 NEG (NEG)
--- NOTE | 2020-08-12 15:58 | HO.PM.IMPN ---
Subjective Subjective Date of Service: 08/12/20 Interval History: patient seen and examined at bedside patient reported shortness of breath and cough Physical Exam Vital Signs: Vital Signs: Last Vital Signs Temp 97.1 F 08/12/20 10:55 Pulse 93 08/12/20 10:55 Resp 18 08/12/20 10:55 BP 140/89 H 08/12/20 10:55 Pulse Ox 94 08/12/20 10:55 Body Mass Index 21.2 Const: Nutritional Appearance: malnourished Chest: Chest palpation & inspection: normal inspection of the chest Resp: Auscultation: rhonchi Cardio: Other: Last Vital Signs Temp 97.1 F 08/12/20 10:55 Pulse 93 08/12/20 10:55 Resp 18 08/12/20 10:55 BP 140/89 H 08/12/20 10:55 Pulse Ox 94 08/12/20 10:55 Body Mass Index 21.2 Jugular venous distension: no JVD Heart sounds: S1 normal heart sound present and S2 normal heart sound present GI: Inspection: Yes normal to inspection Auscultation: normal bowel sounds Skin: General skin exam: no rashes or lesions noted Objective Data Current Medications Generic Name Dose Route Start Last Admin Trade Name Freq PRN Reason Stop Dose Admin Aripiprazole 15 mg 08/11/20 21:00 08/12/20 08:27 Aripiprazole 15 Mg Tablet PO Not Given DAILY JUANIS Baclofen 10 mg 08/10/20 20:38 Baclofen 10 Mg Tablet PO BID PRN Muscle Spasm Bictegravir/Emtricitabine/Tenofovir 1 tab 08/11/20 09:00 08/12/20 08:21 Bictegrav/Emtricit/Tenofov Ala 1 Tab Tablet PO 1 tab DAILY JUANIS Administration Fluoxetine HCl 10 mg 08/11/20 09:00 08/12/20 08:21 Fluoxetine Hcl 10 Mg Capsule PO 10 mg DAILY JUANIS Administration Fluoxetine HCl 20 mg 08/11/20 09:00 08/12/20 08:21 Fluoxetine Hcl 20 Mg Capsule PO 20 mg DAILY JUANIS Administration Gabapentin 1,200 mg 08/10/20 21:00 08/12/20 14:22 Gabapentin 600 Mg Tablet PO 1,200 mg TID JUANIS Administration Hydralazine HCl 10 mg 08/10/20 20:38 Hydralazine Hcl 10 Mg Tablet PO BID PRN Anxiety Protocol Ceftriaxone Sodium 1 gm/ 50 mls @ 100 mls/hr 08/11/20 06:00 08/12/20 06:34 Sodium Chloride IV Infused Q24H JUANIS Infusion Doxycycline Hyclate 100 mg/ 250 mls @ 166.67 mls/hr 08/11/20 06:00 08/12/20 07:59 Sodium Chloride IV Infused Q12H JUANIS Infusion Lisinopril 40 mg 08/11/20 09:00 08/12/20 08:21 Lisinopril 40 Mg Tablet PO 40 mg DAILY JUANIS Administration Protocol Methadone HCl 40 mg 08/11/20 09:30 08/12/20 08:20 Methadone Hcl 1 Mg/0.1 Ml Oral.Conc PO 40 mg DAILY JUANIS Administration Pharmacy Consult 1 each 08/10/20 16:33 Consult Rx Perform Med Rec MISCELLANE ONCE PRN Consult order Sodium Chloride 3 ml 08/11/20 01:57 08/12/20 15:09 0.9 % Sodium Chloride Flush 3 Ml Syringe IVFLUSH 3 ml QSHIFT JUANIS Administration Trimethoprim/Sulfamethoxazole 1 tab 08/13/20 10:00 Sulfamethox/Trimeth 800/160 1 Tab Tablet PO MoWeFr@1000 JUANIS Vitamin D 50 mcg 08/11/20 09:00 08/12/20 08:22 Cholecalciferol (Vitamin D3) 25 Mcg Tablet PO 50 mcg DAILY JUANIS Administration Labs CBC & Chem 7: 08/11/20 07:57 08/11/20 07:57 Microbiology Microbiology Results: Microbiology 08/10/20 16:46 Blood - Venous Blood Culture - Preliminary Streptococcus pneumoniae 08/10/20 16:22 Blood - Venous Blood Culture - Preliminary Streptococcus pneumoniae Assessment and Plan (1) CAP (community acquired pneumonia): Problem details: She has had senior care right lung scarring/bronchiectasis,no specific organism She possibly has some pneumonia in this area Status: Acute (2) Hyponatremia: Status: Acute (3) Uncontrolled hypertension: Status: Acute (4) Dementia: Status: Acute Assessment and Plan: 34-year-old female history of drug abuse and HIV noncompliant with medication presented with cough and shortness of breath found to have right upper lobe infiltrate Right upper lobe pneumonia rule out community acquired vs pcp continue Rocephin and Zithromax continue Bactrim follow-up cultures id consulted recommended continue antibiotic Acute on chronic anemia likely secondary to heavy menstrual periods and HIV stool for occult blood negative hemoglobin 7.2 today Will give 1 unit of PRBCs monitor CBC HIV noncompliant continue Biktarvy Drug abuse with dependence on methadone continue methadone patient reported she did not use any drugs for 1 week DVT prophylaxis compression devices will hold heparin given anemia requiring transfusion
--- NOTE | 2020-08-12 17:03 | MHC.INPTTRAN ---
Patient weak,difficulty obtaining BP,BP 104/75,pulse 134,sat 94 % on RA,patient vomited 200 ml dark green liquid,abdominal distention noted,Dr. Hammond notifed,stat labs were drawn,IV bolus is infusing,patient is ready for transfer
--- NOTE | 2020-08-12 18:08 | PC.NURSE ---
Patient transferred to [facility]
[2020-08-12] MEDS: Doxycycline Hyclate 100 MG in 0.9 % Sodium Chloride 250 ML 166.67 MG IV (19:37)
[2020-08-13] VITALS (7 sets, daily range): BP systolic 123–164; BP diastolic 75–96; PULSE 82–97; RESP 14–19; TEMP 35.9–36.9; O2SAT 93–95
[2020-08-13] MEDS: cefTRIAXone sodium 1 GM in 0.9 % Sodium Chloride 50 ML IV (06:09)
[2020-08-13] MEDS: Doxycycline Hyclate 100 MG in 0.9 % Sodium Chloride 250 ML 166.67 MG IV (06:43)
[2020-08-13] MEDS: 0.9 % Sodium Chloride Flush 3 ML SYRINGE IVFLUSH ×3 (08:55→20:35)
[2020-08-13] MEDS: Cholecalciferol (Vitamin D3) 25 MCG TABLET 50 MCG PO (08:55)
[2020-08-13] MEDS: Gabapentin 600 MG TABLET 1200 MG PO ×3 (08:56→20:35)
[2020-08-13] MEDS: Ferrous Sulfate 324 MG TABLET.DR PO (08:56)
[2020-08-13] MEDS: FLUoxetine HCl 10 MG CAPSULE PO (08:56)
[2020-08-13] MEDS: FLUoxetine HCl 20 MG CAPSULE PO (08:56)
[2020-08-13 08:59] LABS: Hematocrit 30.4 % (37-47); Hemoglobin 9.5 g/dl (12.0-16.0); Mean Corpuscular HGB Conc 31.3 g/dl (31.0-35.0); Mean Corpuscular Hemoglobin 23.6 pg (27.0-33.0); Mean Corpuscular Volume 75.6 fL (80-98); Mean Platelet Volume 9.3 fL (9.4-12.3); Platelet Count 288 X10*3/uL (160-400); Red Blood Count 4.02 X10*6/uL (4.20-5.50); Red Cell Distribution Width 16.3 % (11.0-16.0)
[2020-08-13 09:37] LABS: Anion Gap 12 (12-20); Blood Urea Nitrogen 12 mg/dL (9-16); Calcium 7.9 mg/dL (8.4-10.2); Carbon Dioxide 24 mmol/L (22-29); Chloride 101 mmol/L (96-108); Creatinine Clr Calc Pharmacy 80.4; Estimated Glomerular Filt Rate > 60; Glucose Random 82 mg/dL (60-115); Potassium 4.5 mmol/l (3.3-5.1); Sodium 132 mmol/L (135-145)
--- NOTE | 2020-08-13 12:00 | HO.PM.IMPN ---
Subjective Subjective Date of Service: 08/13/20 Interval History: the patient was seen and evaluated this morning Laying in bed, feels comfortable Denies any fever, chills or shortness of breath blood cultures positive for strep pneumo No reported other overnight events. Systemic review: No fever, chills or weakness No chest pain, palpitation No shortness of breath or coughing No abdominal pain, nausea or vomiting No urinary symptoms No any rash or wounds Physical Exam Vital Signs: Vital Signs: Last Vital Signs Temp 97.8 F 08/13/20 10:55 Pulse 97 08/13/20 10:55 Resp 18 08/13/20 10:55 BP 145/87 H 08/13/20 10:55 Pulse Ox 94 08/13/20 10:55 Body Mass Index 21.2 Constitutional : Alert, oriented, not in distress, looks pale Neck : Normal inspection, Supple Cardiovascular : RRR, S1 S2, no lower extremity edema Respiratory : fair bilateral air entry, right-sided crackles, no wheezes or rhonchi Gastrointestinal: soft, lax, Normal bowel sounds, Non tender Skin : Warm/Dry, No rash Neurological : Alert & oriented x3, No focal deficit Objective Data Current Medications Generic Name Dose Route Start Last Admin Trade Name Freq PRN Reason Stop Dose Admin Aripiprazole 15 mg 08/13/20 21:00 Aripiprazole 15 Mg Tablet PO BEDTIME JUANIS Baclofen 10 mg 08/10/20 20:38 Baclofen 10 Mg Tablet PO BID PRN Muscle Spasm Bictegravir/Emtricitabine/Tenofovir 1 tab 08/11/20 09:00 08/13/20 08:56 Bictegrav/Emtricit/Tenofov Ala 1 Tab Tablet PO 1 tab DAILY JUANIS Administration Ferrous Sulfate 324 mg 08/13/20 09:00 08/13/20 08:56 Ferrous Sulfate 324 Mg Tablet. PO 324 mg DAILY JUANIS Administration Fluoxetine HCl 10 mg 08/11/20 09:00 08/13/20 08:56 Fluoxetine Hcl 10 Mg Capsule PO 10 mg DAILY JUANIS Administration Fluoxetine HCl 20 mg 08/11/20 09:00 08/13/20 08:56 Fluoxetine Hcl 20 Mg Capsule PO 20 mg DAILY JUANIS Administration Gabapentin 1,200 mg 08/10/20 21:00 08/13/20 08:56 Gabapentin 600 Mg Tablet PO 1,200 mg TID JUANIS Administration Hydralazine HCl 10 mg 08/10/20 20:38 Hydralazine Hcl 10 Mg Tablet PO BID PRN Anxiety Protocol Ceftriaxone Sodium 1 gm/ 50 mls @ 100 mls/hr 08/11/20 06:00 08/13/20 06:42 Sodium Chloride IV Infused Q24H JUANIS Infusion Doxycycline Hyclate 100 mg/ 250 mls @ 166.67 mls/hr 08/11/20 06:00 08/13/20 08:20 Sodium Chloride IV Infused Q12H JUANIS Infusion Lisinopril 40 mg 08/11/20 09:00 08/13/20 08:57 Lisinopril 40 Mg Tablet PO Not Given DAILY JUANIS Protocol Methadone HCl 40 mg 08/11/20 09:30 08/13/20 08:58 Methadone Hcl 1 Mg/0.1 Ml Oral.Conc PO 40 mg DAILY JUANIS Administration Pharmacy Consult 1 each 08/10/20 16:33 Consult Rx Perform Med Rec MISCELLANE ONCE PRN Consult order Sodium Chloride 3 ml 08/11/20 01:57 08/13/20 08:55 0.9 % Sodium Chloride Flush 3 Ml Syringe IVFLUSH 3 ml QSHIFT JUANIS Administration Trimethoprim/Sulfamethoxazole 1 tab 08/13/20 10:00 08/13/20 09:04 Sulfamethox/Trimeth 800/160 1 Tab Tablet PO 1 tab MoWeFr@1000 JUANIS Administration Vitamin D 50 mcg 08/11/20 09:00 08/13/20 08:55 Cholecalciferol (Vitamin D3) 25 Mcg Tablet PO 50 mcg DAILY JUANIS Administration Labs CBC & Chem 7: 08/13/20 08:28 08/13/20 08:28 Microbiology Microbiology Results: Microbiology 08/10/20 16:46 Blood - Venous Blood Culture - Final Streptococcus pneumoniae 08/10/20 16:22 Blood - Venous Blood Culture - Final Streptococcus pneumoniae Assessment and Plan (1) HIV (human immunodeficiency virus infection): Status: Acute (2) Anemia: Problem details: Possibly due to heavy menses as well as HIV Status: Acute (3) CAP (community acquired pneumonia): Problem details: She has had senior care right lung scarring/bronchiectasis,no specific organism She possibly has some pneumonia in this area Status: Acute (4) Muscle spasms of both lower extremities: Status: Acute (5) Uncontrolled hypertension: Status: Acute (6) Hyponatremia: Status: Acute (7) Bacteremia due to Streptococcus pneumoniae: Status: Acute (8) Dementia: Status: Acute Assessment and Plan: 34-year-old female history of drug abuse and HIV noncompliant with medication presented with cough and shortness of breath found to have right upper lobe infiltrate bacteremia Streptococcus pneumo Right upper lobe pneumonia CT scan chest showing large consolidations within the right lobe continue Rocephin and Zithromax continue Bactrim follow-up cultures id input appreciated repeated blood culture sent To place central line to finish total of 2 weeks of IV antibiotics Acute on chronic symptomatic anemia iron deficiency anemia likely secondary to heavy menstrual periods and HIV stool for occult blood negative low iron stores, start replacement hemoglobin 9 today post 1 unit of PRBCs monitor CBC HIV noncompliant continue Biktarvy Drug abuse with dependence on methadone continue methadone patient reported she did not use any drugs for 1 week hyponatremia Improving Sodium 132 today Continue to monitor DVT prophylaxis SCDs
--- NOTE | 2020-08-13 12:07 | MHC.CM.PN ---
Met with patient. Very pleasant and forth coming. Tells me she needs 2 weeks of IV therapy. Per MD rounds, pt has bacteremia and needs 2 weeks of IV therapy. PICC line cannot yet be placed. Possible PICC and D/C in 2 days. Pt aware of [facility] and that they are willing to take pt with substance misuse disorder. Will place a referral.
[2020-08-13 13:31] LABS: Absolute CD3 Count 386 cells/uL (840-3060); Absolute CD4 Count 97 cells/uL (490-1740); Absolute CD8 Count 288 cells/uL (180-1170); Absolute Lymphocytes 424 cells/uL (850-3900); CD4 CD8 Ratio 0.34 (0.86-5.00); Percent CD3 Cells 91 % (57-85); Percent CD4 Cells 23 % (30-61); Percent CD8 Cells 68 % (12-42)
--- NOTE | 2020-08-13 16:08 | PM.IDPN ---
Subjective Subjective Date of Service: 08/13/20 Interval History: she feels somewhat better she is not on oxygen Objective Data Labs CBC & Chem 7: 08/14/20 06:37 08/14/20 06:37 Labs: Laboratory Results - last 24 hr 08/11/20 08/12/20 08/13/20 07:56 16:16 08:28 WBC 2.0 L RBC 4.02 L D Hgb 9.5 L D Hct 30.4 L D MCV 75.6 L MCH 23.6 L MCHC 31.3 RDW 16.3 H Plt Count 288 MPV 9.3 L Absolute Nucleated RBC 0.000 Nucleated RBC % (auto) 0.0 Sodium Potassium Chloride Carbon Dioxide Anion Gap BUN Creatinine Estim Creat Clear Calc Estimated GFR Random Glucose Calcium Lymphocyte Subset Cmmnt Not Reportable Total Lymphocytes 424 L % CD3 Cells 91 H Absolute CD3 Count 386 L % CD4 Cells 23 L Absolute CD4 Count 97 L CD4/CD8 Ratio 0.34 L % CD8 Cells 68 H Absolute CD8 Count 288 Blood Type B Positive Antibody Screen NEGATIVE Crossmatch See Detail 08/13/20 08:28 WBC RBC Hgb Hct MCV MCH MCHC RDW Plt Count MPV Absolute Nucleated RBC Nucleated RBC % (auto) Sodium 132 L Potassium 4.5 Chloride 101 Carbon Dioxide 24 Anion Gap 12 BUN 12 Creatinine 0.80 Estim Creat Clear Calc 80.4 Estimated GFR > 60 Random Glucose 82 Calcium 7.9 L D Lymphocyte Subset Cmmnt Total Lymphocytes % CD3 Cells Absolute CD3 Count % CD4 Cells Absolute CD4 Count CD4/CD8 Ratio % CD8 Cells Absolute CD8 Count Blood Type Antibody Screen Crossmatch Microbiology Microbiology Results: Microbiology 08/10/20 16:46 Blood - Venous Blood Culture - Final Streptococcus pneumoniae 08/10/20 16:22 Blood - Venous Blood Culture - Final Streptococcus pneumoniae Physical Exam Vital Signs: Vital Signs: Last Vital Signs Temp 97.6 F 08/13/20 15:11 Pulse 82 08/13/20 15:11 Resp 17 08/13/20 15:11 BP 136/77 08/13/20 15:11 Pulse Ox 93 08/13/20 15:11 Body Mass Index 21.2 Const: General: cooperative Orientation/consciousness: patient oriented x3 HENMT: Head: Yes normal to inspection Mouth: Normal oral and palatal mucosa present Resp: Effort & Inspection: normal respiratory effort Cardio: Rate: regular rate Rhythm: regular rhythm GI: Inspection: Yes normal to inspection Palpation (GI): nontender : General: Yes no CVA tenderness Back/Spine/Pelvis: Back: no CVA tenderness Skin: General skin exam: no rashes or lesions noted Neuro: General: patient oriented x3 Assessment and Plan Assessment and plan (1) Bacteremia due to Streptococcus pneumoniae: Status: Resolved Assessment and Plan: She is on Ceftriaxone now,when leaves switch to po Levaquin 750 mg daily to complete 14 d therapy right sided pneumonia Will stop Doxycycline now Bactrim DS three times a week (2) HIV (human immunodeficiency virus infection): Assessment and Plan: Biktarvy outpatient (3) Anemia: Assessment and Plan: F/U Chief Technical Officer Time Spent With Patient Time: Total time spent is greater than 50% in coordination of care (as documented) at patient's floor/unit and/or counseling patient: Time with patient: 15 - 24 minutes
[2020-08-13] MEDS: levoFLOXacin/D5W 500 MG/100 ML PIGGYBACK 100 MG IV (16:23)
--- NOTE | 2020-08-13 16:48 | MHC.CM.PN ---
[facility] willing to accept and pt agrees to placement. HCP completed and signed. In patient's chart. Pt PCP is Chaya Kay. Pt. gets methadone through [facility] in [place]
[2020-08-13] MEDS: Nicotine 14 MG PATCH.TD24 TRANSDERMA (17:52)
[2020-08-13] MEDS: ARIPiprazole 15 MG TABLET PO (20:35)
[2020-08-14 03:34] VITALS: BP 138/83; PULSE 84; RESP 16; TEMP 36; O2SAT 96
[2020-08-14 07:07] LABS: Hematocrit 32.6 % (37-47); Mean Corpuscular HGB Conc 30.7 g/dl (31.0-35.0); Mean Corpuscular Hemoglobin 23.5 pg (27.0-33.0); Mean Corpuscular Volume 76.5 fL (80-98); Mean Platelet Volume 9.3 fL (9.4-12.3); Platelet Count 303 X10*3/uL (160-400); Red Blood Count 4.26 X10*6/uL (4.20-5.50); Red Cell Distribution Width 16.8 % (11.0-16.0)
[2020-08-14 07:21] VITALS: BP 140/87; PULSE 89; RESP 17; TEMP 36.6; O2SAT 94
[2020-08-14] MEDS: FLUoxetine HCl 10 MG CAPSULE PO (07:23)
[2020-08-14] MEDS: Ferrous Sulfate 324 MG TABLET.DR PO (07:23)
[2020-08-14] MEDS: FLUoxetine HCl 20 MG CAPSULE PO (07:23)
[2020-08-14] MEDS: lisinopriL 40 MG TABLET PO (07:24)
[2020-08-14] MEDS: Cholecalciferol (Vitamin D3) 25 MCG TABLET 50 MCG PO (07:24)
[2020-08-14] MEDS: Gabapentin 600 MG TABLET 1200 MG PO (07:24)
[2020-08-14] MEDS: 0.9 % Sodium Chloride Flush 3 ML SYRINGE IVFLUSH (07:25)
[2020-08-14 07:43] LABS: Anion Gap 9 (12-20); Blood Urea Nitrogen 14 mg/dL (9-16); Carbon Dioxide 27 mmol/L (22-29); Chloride 102 mmol/L (96-108); Creatinine Clr Calc Pharmacy 75.7; Estimated Glomerular Filt Rate > 60; Glucose Random 76 mg/dL (60-115); Potassium 4.7 mmol/l (3.3-5.1); Sodium 133 mmol/L (135-145)
[2020-08-14 11:14] VITALS: BP 121/83; PULSE 97; RESP 16; TEMP 36.7; O2SAT 96
--- NOTE | 2020-08-14 12:12 | MHC.CARE ---
Recovery Support note: Patient is a 34 year old [place] speaking female who presented to [facility] after being sent from a detox. Patient currently receives Methadone through [facility] and reports that it is working very well and that she finds it helpful at reducing cravings. Patient reports she has a stable home and that she is feeling good about discharging. Discussed outpatient supports with patient. Patient reports she does not feel the need to get into a treatment program at this time. Patient reports a strong desire to remain in recovery so that she can get her kids back and continue to work towards putting her Mother's house on the market. Patient reports she has a therapist who she speaks with weekly and sober friends who she can lean on for support. Patient expressed interest in in-person support groups. This blog writer discussed [facility] with patient and provided patient with information on this support. Discussed IOP with patient and how completing that type of program can be helpful for her recovery and her goal of getting her children back. Patient acknowledged, reporting she has done an IOP before when they were in-person. Patient accepted information on IOP and NA support groups. Discussed case with patient's RN.
--- NOTE | 2020-08-14 12:27 | PC.NURSE ---
Called [facility] to alert them that Ofelia was being discharged. Unable to speak to someone clinic closes at noon. I left a message on the machine to let them know patient was being discharge. Then called [facility] and spoke to Larisa who will remove the Methadone from her list.
--- NOTE | 2020-08-14 12:36 | MHC.CM.PN ---
Met with pt. Agreeable to discharge and very happy to be able to take antibiotics orally, not needing SNF. Care team met with patient and left materials for recovery. Encourage pt to make that first call! SNF referral cancelled. Pt arranged transportation by significant other. Expect d/c around 1pm today
--- NOTE | 2020-08-14 14:29 | P.DS_ITS ---
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 Outpatient tx options Has provider been notified: Yes DS: Diagnosis Discharge Diagnosis (1) Bacteremia due to Streptococcus pneumoniae: Status: Acute (2) HIV (human immunodeficiency virus infection): Status: Acute (3) Anemia: Status: Acute (4) Acute on chronic anemia: Status: Acute (5) CAP (community acquired pneumonia): Status: Acute (6) Hyponatremia: Status: Acute DS: Medications Discharge Medications Home Medications: Home Medications Medication Instructions Recorded Confirmed aripiprazole 15 mg PO DAILY 08/10/20 08/10/20 baclofen 10 mg PO BID PRN 08/10/20 08/10/20 cholecalciferol (vitamin D3) 50 mcg PO DAILY 08/10/20 08/10/20 fluoxetine 10 mg PO DAILY 08/10/20 08/10/20 fluoxetine 20 mg PO DAILY 08/10/20 08/10/20 gabapentin 1,200 mg PO TID 08/10/20 08/10/20 hydralazine 10 mg PO BID PRN 08/10/20 08/10/20 hydroxyzine pamoate 25 mg PO BID PRN 08/10/20 08/10/20 lisinopril 40 mg PO DAILY 08/10/20 08/10/20 Previous Rx's Medication Instructions Recorded Biktarvy 1 tab PO DAILY #30 tab 08/14/20 ferrous sulfate 324 mg PO DAILY #30 tab 08/14/20 levofloxacin 500 mg PO Q24H #11 tab 08/14/20 sulfamethoxazole-trimethoprim 1 tab PO 3XW #10 tab 08/14/20 [Bactrim DS] DS: Summary Hospital Course Hospital Course: admission note HPI 34 y/o female with an extensive PMHX including HIV who presented from home due to SOB. Per history provided by the patient, for the past 1 week has been having a right upper chest discomfort, pressure like, none radiating, 5-6/10 in intensity, associated with a dry cough which is now productive, SOB and diarrhea. Patient denies any episodes of fever or chills, sick contacts or recent travel. Patient has a significant hx of multiple drug abuse including crack and marijuana. Was in detox for the past 5 days and was discharged today. On presentation to the ED patient was found to be initially tachycardic and hypertensive, now BP of 151/93 mmHg and HR of 95. Hgb of 8.4 with baseline of 10.4, Na of 130, CXR positive for RUL consolidation concerning for PNA. One dose of Zosyn and Rocephin were given per ED attending. Decision for admission given. Patient seen and examined at the bedside, laying down in bed in no acute distress. ROS as above otherwise negative. Physical exam positive for mal nourished female, otherwise unremarkable. Hospital course The patient was admitted to the hospital for evaluation of shortness of breath and cough. Found to have right upper lobe infiltrate on CXR. A CT scan showed large consolidation within the right lobe. The patient was started on Rocephin and azithromycin. Bactrim was added 3 times a week for history of HIV. She was evaluated by infectious disease who recommended total treatment of 14 days of antibiotic as blood cultures grew Streptococcus pneumonia. Patient condition improved during the hospital stay and she was on room air ambulating freely with no reported shortness of breath. She was also noticed to have symptomatic anemia with acute on chronic sitting. Iron levels were found to be low. She reports having heavy menses which is the likely reason but could also be from HIV S the patient noncompliant with her treatment. She received did admit of blood with hemoglobin stable around 9 and started on iron pills. She was started on Biktarv clear infectious disease along with Bactrim 3 times a week for low CD4 readings of 96. to follow-up with Dr. Alston as outpatient. To take levofloxacin as prescribed for total of 14 days of antibiotics To continue treatment for HIV To take iron pills To repeat blood test next week Time Spent with Patient Time attestation: Total time spent providing and/or coordinating discharge services: Physical Exam Vital Signs: Vital Signs: Last Vital Signs Temp 98.0 F 08/14/20 11:14 Pulse 97 08/14/20 11:14 Resp 16 08/14/20 11:14 BP 121/83 08/14/20 11:14 Pulse Ox 96 08/14/20 11:14 Body Mass Index 21.2 Constitutional : Alert, oriented, not in distress Neck : Normal inspection, Supple Cardiovascular : RRR, S1 S2, no lower extremity edema Respiratory : Good bilateral air entry, no crackles, wheezes or rhonchi Gastrointestinal: soft, lax, Normal bowel sounds, Non tender Skin : Warm/Dry, No rash Neurological : Alert & oriented x3, No focal deficit DS: Data Data Completed and Pending Labs on day of discharge: 08/10/20 15:39 XR chest 2V Stat 08/10/20 15:51 XR shoulder RT min 2V Stat 08/10/20 16:12 Azithromycin [Zithromax] 500 mg 0.9 % Sodium Chloride [Ns] 250 ml IV ONCE cefTRIAXone sodium [Rocephin] 1 gm 0.9 % Sodium Chloride [Ns] 50 ml IV ONCE 08/10/20 16:16 Piperacillin Sodium/Tazobactam [Zosyn] 4.5 gm 0.9 % Sodium Chloride [Ns] 100 ml IV ONCE 08/10/20 16:17 vancomycin HCL 750 mg 0.9 % Sodium Chloride [Ns] 250 ml IV ONCE 08/10/20 16:22 Basic Metabolic Panel Stat Complete Blood Count Auto Diff Stat Lactic Acid Stat Liver Panel Stat Prothrombin Time INR Stat 0.9 % Sodium Chloride [Ns] 1,000 ml IV 999 mls/hr 08/10/20 16:32 Piperacillin Sodium/Tazobactam [Zosyn] 4.5 gm IV .STK-MED ONE 08/10/20 16:46 COVID-19 ID NOW ([facility]) Stat Blood Culture X2 [BC] Stat 08/10/20 17:27 vancomycin HCL 750 mg IV .STK-MED ONE 08/10/20 19:04 ECG 12 lead EKG Stat EKG Documentation DIRECTED 08/10/20 22:33 Respiratory Panel Stat 08/10/20 23:25 Transfer Order Routine 08/11/20 CT chest wo con Routine 08/11/20 05:41 cefTRIAXone sodium [Rocephin] 1 gm .ROUTE .STK-MED ONE 08/11/20 06:00 Doxycycline Hyclate [Vibramycin] 100 mg 0.9 % Sodium Chloride [Ns] 250 ml IV Q12H Heparin Sodium,Porcine 5,000 unit SUBCUT Q8H cefTRIAXone sodium [Rocephin] 1 gm 0.9 % Sodium Chloride [Ns] 50 ml IV Q24H 08/11/20 06:20 Doxycycline Hyclate [Vibramycin] 100 mg IV .STK-MED ONE 08/11/20 07:56 Ferritin Stat IRON PROFILE Stat Lymphocyte Subset Panel 3 Stat Reticulocyte Count Stat 08/11/20 07:57 Basic Metabolic Panel Routine Complete Blood Count Auto Diff Routine SLIDE REVIEW Routine 08/11/20 09:00 ARIPiprazole [Abilify] 15 mg PO DAILY 08/11/20 15:08 Drug Screen Urine Routine 08/11/20 18:35 Doxycycline Hyclate [Vibramycin] 100 mg IV .STK-MED ONE 08/11/20 21:00 ARIPiprazole [Abilify] 15 mg PO DAILY 08/12/20 05:50 cefTRIAXone sodium [Rocephin] 1 gm .ROUTE .STK-MED ONE 08/12/20 06:19 Doxycycline Hyclate [Vibramycin] 100 mg IV .STK-MED ONE 08/12/20 11:31 OBSX1 Routine 08/12/20 16:16 Red Blood Cells Routine Type and Screen Routine 08/12/20 19:33 Doxycycline Hyclate [Vibramycin] 100 mg IV .STK-MED ONE 08/13/20 06:04 cefTRIAXone sodium [Rocephin] 1 gm .ROUTE .STK-MED ONE 08/13/20 06:32 Doxycycline Hyclate [Vibramycin] 100 mg IV .STK-MED ONE 08/13/20 08:28 Basic Metabolic Panel Urgent Complete Blood Count no Diff Urgent 08/14/20 06:37 Basic Metabolic Panel DAILY@0600 Laboratory Last Values WBC 2.0 X10*3/uL (4.8-10.8) L 08/14/20 06:37 RBC 4.26 X10*6/uL (4.20-5.50) 08/14/20 06:37 Hgb 10.0 g/dl (12.0-16.0) L 08/14/20 06:37 Hct 32.6 % (37-47) L 08/14/20 06:37 MCV 76.5 fL (80-98) L 08/14/20 06:37 MCH 23.5 pg (27.0-33.0) L 08/14/20 06:37 MCHC 30.7 g/dl (31.0-35.0) L 08/14/20 06:37 RDW 16.8 % (11.0-16.0) H 08/14/20 06:37 Plt Count 303 X10*3/uL (160-400) 08/14/20 06:37 MPV 9.3 fL (9.4-12.3) L 08/14/20 06:37 Immature Gran % (Auto) 2.0 % (0.0-0.4) H 08/11/20 07:57 Neut % (Auto) 73.2 % (45-73) H 08/11/20 07:57 Lymph % (Auto) 16.4 % (20-40) L 08/11/20 07:57 [place] % (Auto) 8.0 % (2-11) 08/11/20 07:57 Eos % (Auto) 0.4 % (0-4) 08/11/20 07:57 Baso % (Auto) 0.0 % (0-2) 08/11/20 07:57 Lymph # (Auto) 0.4 X10*3/uL (1.2-4.9) L 08/11/20 07:57 [place] # (Auto) 0.2 X10*3/uL (0.1-1.2) 08/11/20 07:57 Eos # (Auto) 0.0 X10*3/uL (0.0-0.4) 08/11/20 07:57 Baso # (Auto) 0.0 X10*3/uL (0.0-0.2) 08/11/20 07:57 Abs Immat Gran (auto) 0.05 X10*3/uL (0.00-0.03) H 08/11/20 07:57 Absolute Neuts (auto) 1.8 X10*3/uL (2.0-8.3) L 08/11/20 07:57 Absolute Nucleated RBC 0.000 X10*3/uL (0.0-0.012) 08/14/20 06:37 Nucleated RBC % (auto) 0.0 /100WBC (0.0-0.2) 08/14/20 06:37 Smear Tech's Comments VERIFIED 08/11/20 07:57 Absolute Retic 0.040 X10*6/uL (0.026-0.095) 08/11/20 07:56 Percent Retic 1.3 % (0.5-1.8) 08/11/20 07:56 Immature Retic Fraction 17.8 % (3.0-15.9) H 08/11/20 07:56 Retic Hgb Equivalent 21.5 pg (30.0-35.0) L 08/11/20 07:56 PT 16.8 SEC (10.8-13.0) H 08/10/20 16:22 INR 1.4 (0.9-1.1) H 08/10/20 16:22 Sodium 133 mmol/L (135-145) L 08/14/20 06:37 Potassium 4.7 mmol/l (3.3-5.1) 08/14/20 06:37 Chloride 102 mmol/L (96-108) 08/14/20 06:37 Carbon Dioxide 27 mmol/L (22-29) 08/14/20 06:37 Anion Gap 9 (12-20) L 08/14/20 06:37 BUN 14 mg/dL (9-16) 08/14/20 06:37 Creatinine 0.85 mg/dL (0.5-1.4) 08/14/20 06:37 Estim Creat Clear Calc 75.7 08/14/20 06:37 Estimated GFR > 60 08/14/20 06:37 Random Glucose 76 mg/dL (60-115) 08/14/20 06:37 Lactic Acid 1.0 mmol/L (0.5-2.0) 08/10/20 16:22 Calcium 8.0 mg/dL (8.4-10.2) L 08/14/20 06:37 Iron 17 mcg/dL (30-160) L 08/11/20 07:56 TIBC 227 mcg/dL (228-428) L 08/11/20 07:56 % Saturation 7 % (15-50) L 08/11/20 07:56 Unsat Iron Binding 210 ug/dL 08/11/20 07:56 Ferritin 155 ng/mL (10-122) H 08/11/20 07:56 Total Bilirubin 0.5 mg/dL (0.0-1.0) 08/10/20 16:22 Direct Bilirubin 0.2 mg/dL (0.0-0.5) 08/10/20 16:22 AST 25 U/L (5-31) 08/10/20 16:22 ALT 15 U/L (0-31) 08/10/20 16:22 Alkaline Phosphatase 134 U/L (39-117) H 08/10/20 16:22 Total Protein 8.9 g/dL (6.5-8.0) H 08/10/20 16:22 Albumin 2.6 g/dL (3.5-5.0) L 08/10/20 16:22 Stool Occult Blood NEG (NEG) 08/12/20 11:31 Urine Opiates Screen Not Detected (Not Detect) 08/11/20 15:08 Ur Barbiturates Screen Not Detected (Not Detect) 08/11/20 15:08 Ur Phencyclidine Scrn Not Detected (Not Detect) 08/11/20 15:08 Ur Amphetamines Screen Not Detected (Not Detect) 08/11/20 15:08 U Benzodiazepines Scrn Not Detected (Not Detect) 08/11/20 15:08 Urine Cocaine Screen Not Detected (Not Detect) 08/11/20 15:08 U Marijuana (THC) Screen POSITIVE (Not Detect) H 08/11/20 15:08 Lymphocyte Subset Cmmnt Not Reportable 08/11/20 07:56 Total Lymphocytes 424 cells/uL (850-3900) L 08/11/20 07:56 % CD3 Cells 91 % (57-85) H 08/11/20 07:56 Absolute CD3 Count 386 cells/uL (840-3060) L 08/11/20 07:56 % CD4 Cells 23 % (30-61) L 08/11/20 07:56 Absolute CD4 Count 97 cells/uL (490-1740) L 08/11/20 07:56 CD4/CD8 Ratio 0.34 (0.86-5.00) L 08/11/20 07:56 % CD8 Cells 68 % (12-42) H 08/11/20 07:56 Absolute CD8 Count 288 cells/uL (180-1170) 08/11/20 07:56 Respiratory Panel [place] See Note 08/10/20 22:33 Adenovirus (Rapid PCR) Not Detected (Not Detect.) 08/10/20 22:33 B.pert (TEM-PCR) Not Detected (Not Detect.) 08/10/20 22:33 B.parapertussis DNA PCR Not Detected (Not Detect.) 08/10/20 22:33 C. pneumoniae DNA (PCR) Not Detected (Not Detect.) 08/10/20 22:33 Coronavirus OC43 (PCR) Not Detected (Not Detect.) 08/10/20 22:33 Coronavirus HKU1 (PCR) Not Detected (Not Detect.) 08/10/20 22:33 Coronavirus 229E (PCR) Not Detected (Not Detect.) 08/10/20 22:33 COVID-19 (TIKA) Negative (Negative) 08/10/20 16:46 COVID-19 Clin Com See Note 08/10/20 16:46 Coronavirus NL63 (PCR) Not Detected (Not Detect.) 08/10/20 22:33 Human Metapneumovir PCR Not Detected (Not Detect.) 08/10/20 22:33 Influenza A (RT-PCR) Not Detected (Not Detect.) 08/10/20 22:33 Influenza B (RT-PCR) Not Detected (Not Detect.) 08/10/20 22:33 M. pneumoniae (PCR) Not Detected (Not Detect.) 08/10/20 22:33 Parainfluenza 1 (PCR) Not Detected (Not Detect.) 08/10/20 22:33 Parainfluenza 2 (PCR) Not Detected (Not Detect.) 08/10/20 22:33 Parainfluenza 3 (PCR) Not Detected (Not Detect.) 08/10/20 22:33 Parainfluenza 4 (PCR) Not Detected (Not Detect.) 08/10/20 22:33 RSV (PCR) Not Detected (Not Detect.) 08/10/20 22:33 Entero/Rhino (PCR) Not Detected (Not Detect.) 08/10/20 22:33 SARS-CoV-2 RNA (RT-PCR) Not Detected (Not Detect.) 08/10/20 22:33 Blood Type B Positive 08/12/20 16:16 Antibody Screen NEGATIVE 08/12/20 16:16 Crossmatch See Detail 08/12/20 16:16 Preliminary micro results at discharge 08/13/20 08:37 Blood Culture - Preliminary Blood - Venous No growth after 24 hours. 08/13/20 08:28 Blood Culture - Preliminary Blood - Venous No growth after 24 hours. Discharge Plan Discharge Patient Disposition: Home, Self-Care Referrals: Chaya Kay DO [Primary Care Provider] - Discharge Medications: New ferrous sulfate 324 mg (65 mg iron) Tablet,Delayed Release (Dr/Ec) 324 mg PO DAILY Qty: 30 RF: 0 levofloxacin 500 mg tablet 500 mg PO Q24H Qty: 11 RF: 0 Continued hydralazine 10 mg Tablet 10 mg PO BID PRN (Reason: Anxiety) RF: 0 gabapentin 600 mg Tablet 1,200 mg PO TID RF: 0 baclofen 10 mg Tablet 10 mg PO BID PRN (Reason: Muscle Spasm) RF: 0 fluoxetine 10 mg Capsule 10 mg PO DAILY RF: 0 lisinopril 40 mg Tablet 40 mg PO DAILY RF: 0 fluoxetine 20 mg Capsule 20 mg PO DAILY RF: 0 hydroxyzine pamoate 25 mg Capsule 25 mg PO BID PRN (Reason: Anxiety) RF: 0 aripiprazole 15 mg Tablet 15 mg PO DAILY RF: 0 cholecalciferol (vitamin D3) 50 mcg (2,000 unit) Capsule 50 mcg PO DAILY RF: 0 sulfamethoxazole-trimethoprim [Bactrim DS] 800-160 mg Tablet 1 tab PO 3XW Qty: 10 RF: 3 Biktarvy 50-200-25 mg Tablet 1 tab PO DAILY Qty: 30 RF: 3 Discharge Orders: Discharge Order (Routine); Ordered 08/14/20 Ordered By: Scott Renner Diet: advance to usual diet Activity on Discharge: As tolerated Other Ambulatory Orders: Complete Blood Count no Diff (Routine) Timeframe: 1 Week Facility: [facility] - Location: [address] [place] [address]-Lab Ordered By: Scott Renner Visit Report Forms: Patient Portal Discharge page Care Plan Goals: Read below Health Concerns: Read below Plan of Treatment: You were admitted to the hospital for evaluation of difficulty breathing and coughing. You were found to have pneumonia mainly on the right lung. You were treated with IV antibiotics with good response. Your blood cultures grew bacteria called Streptococcus pneumonia and you were evaluated by infectious disease specialist who recommended treatment with oral antibiotics for total of 2 weeks. Your HIV medication Biktravy was restarted during this hospital stay. To continue daily after discharge. To use Bactrim 3 times weekly for low immunity as a result of HIV. to follow-up with infectious disease clinic as outpatient You were evaluated for anemia. likely a result of heavy menses. You were started on iron pills to continue daily. To follow-up with gynecology as outpatient for further evaluation. To repeat blood test next week.
== END 2020-08-14 15:24 | disposition home or self-care (01) | DRG 893 ==
LOC: HO.ED 16:22 → HO.S3 23:54
PROVIDERS: Internal Medicine; Nurse Practitioner Family; Admitting Provider Internal Medicine; Emergency Provider Internal Medicine; PCP Family Medicine; Visit Provider Student in an Organized Health Care Education/Training Program
DX: J18.1 Lobar pneumonia, unspecified organism (principal); B20 Human immunodeficiency virus [HIV] disease; E87.1 Hypo-osmolality and hyponatremia; R78.81 Bacteremia; F11.20 Opioid dependence, uncomplicated; N92.0 Excessive and frequent menstruation with regular cycle; E86.0 Dehydration; F32.9 Major depressive disorder, single episode, unspecified; Z91.14 Patient's other noncompliance with medication regimen; B95.3 Streptococcus pneumoniae as the cause of diseases classified elsewhere; M62.838 Other muscle spasm; I10 Essential (primary) hypertension; F17.210 Nicotine dependence, cigarettes, uncomplicated; Z71.6 Tobacco abuse counseling; Z20.828 Contact with and (suspected) exposure to other viral communicable diseases; Z87.820 Personal history of traumatic brain injury; Z79.899 Other long term (current) drug therapy
CPT/HCPCS: 36415; 71046; 71250; 73030; 80048; 80076; 80307; 82272; 82728; 83540; 83605; 85025; 85027; 85045; 85060; 85610; 86359; 86360; 86850; 86900; 86901; 86920; 86923; 87040; 87077; 87147; 87185; 87186; 87633; 87635; 93005; 96361; 96365; 96367; 99285; J0696; J1956; J2543; J3370; P9016

== ENCOUNTER 2021-04-26 13:30 | Outpatient (REF) | payer MEDICAID, SELFPAY ==
--- NOTE | ~2021-04-26 | XR_ITS ---
EXAMINATION: XR CHEST CLINICAL INFORMATION: Chronic airspace opacities. Follow-up. COMPARISON: Chest radiographs 08/10/2020, 11/04/2019, 06/08/2018, 03/01/2018 TECHNIQUE: 2 views of the chest were obtained. FINDINGS: Right pulmonary airspace opacities are decreased in size and confluence when compared with prior study 08/10/2020. There is still patchy opacity in right mid zone involving all the caudal aspect upper lobe and the medial right middle lobe. There is persistent opacity adjacent to the upper left cardiac border at the lingula also noted on previous exam of similar size and attenuation. There is no new airspace consolidation. The vascularity is normal. The costophrenic sulci are clear. The heart is normal in size. The hilar and mediastinal contours and bony structures are stable. XR/XR chest 2V IMPRESSION: 1. Right pulmonary opacities upper and middle lobe with mild to moderate decreased since prior imaging 08/10/2020. 2. Lingular opacity left lung stable. 3. No vascular congestion, new pulmonary opacity, or effusion. The
== END 2021-04-26 13:31 | disposition home or self-care (01) ==
LOC: HO.XRAY 13:30
PROVIDERS: PCP Family Medicine; Visit Provider Nurse Practitioner Primary Care
DX: R05 Cough (principal); R93.89 Abnormal findings on diagnostic imaging of other specified body structures
CPT/HCPCS: 71046

== ENCOUNTER 2021-09-09 16:54 | Inpatient (IN) | payer MEDICARE, MEDICAID, SELFPAY ==
--- NOTE | ~2021-09-09 | CT_ITS ---
EXAMINATION: CT ANGIOGRAM OF THE CHEST WITH AND WITHOUT CONTRAST (CT PULMONARY ANGIOGRAM FOR PE) CLINICAL INFORMATION: Reason for Exam elevated ddimer COMPARISON: Previous chest x-ray July 2020 and chest x-ray from yesterday TECHNIQUE: Prior to contrast administration, noncontrast localization images were obtained. Subsequently, multidetector volumetric imaging was performed from the thoracic inlet to below the diaphragms following the administration of 65 mL Omnipaque 350 intravenous contrast. No contrast reaction reported Sagittal, coronal, and MIP oblique sagittal reformatted images were obtained on the CT workstation, uploaded to PACS, and reviewed. This CT examination was performed using dose optimization techniques as appropriate, variously including the following: *Automated exposure control *Adjustment of mA and/or kV according to patient size (this includes techniques or standardized protocols for targeted exams where dose is matched to indication/reason for exam; i.e. extremities or head) *Use of iterative reconstruction technique Total exam dose-length product 204 mGy-cm FINDINGS: QUALITY OF STUDY/CONTRAST BOLUS: Satisfactory. PULMONARY ARTERIES: No central or segmental pulmonary emboli. THORACIC AORTA: No aneurysm or dissection. LUNG: There is consolidation in the right middle and right upper lobes with air bronchograms suggestive of pneumonia. There is a small or area of atelectasis or pneumonia in the inferior segment of the lingula. The lungs are otherwise clear. PLEURA: No pleural effusion or pneumothorax. MEDIASTINUM: Normal heart size. No pericardial effusion. There is mediastinal and bilateral hilar lymphadenopathy. This may be reactive. No evidence of septal bowing or right heart strain. There is a 1.5 x 2 cm left thyroid nodule. CHEST WALL/AXILLA: No chest wall mass. There are is bilateral axillary lymphadenopathy, left greater than right. OSSEOUS STRUCTURES: No acute or suspicious osseous abnormality. UPPER ABDOMEN: The spleen and liver are not completely imaged but appear enlarged. Enlarged. No reflux of contrast into the hepatic veins to suggest elevated right heart pressures. CT/CT angio chest PE protocol IMPRESSION: No evidence of pulmonary embolism. Right middle and right upper lobe pneumonia. Small infiltrate in the lingula. Probable hepatosplenomegaly. Bilateral axillary lymphadenopathy, left greater than right. Left thyroid nodule. Ultrasound follow-up recommended. VTE: negative
--- NOTE | ~2021-09-09 | XR_ITS ---
EXAMINATION: XR CHEST CLINICAL INFORMATION: Right-sided chest pain. COMPARISON: Multiple prior studies. Most recent is Prior chest x-ray 04/26/2021. CT chest 08/11/2020 TECHNIQUE: 2 views of the chest were obtained. FINDINGS: Persistent chronic right perihilar upper lobe airspace opacities unchanged since chest x-ray of 04/26/2021. The airspace opacity is improved since 08/11/2020 CT chest. The small patchy airspace opacity at the lingula on the prior chest x-ray 04/26/2021 has resolved. There is linear scarring now present in the lingula. No acute airspace disease. No pleural effusion. Cardiac and mediastinal contours are unchanged. XR/XR chest 2V IMPRESSION: Persistent chronic right perihilar airspace opacity unchanged since chest x-ray 04/26/2021. Interval resolution of the lingular opacity since prior chest x-ray.
[2021-09-09 18:23] VITALS: BP 144/87; PULSE 93; RESP 20; TEMP 37.2; O2SAT 96; BMI 22.1
--- NOTE | 2021-09-09 18:24 | ECG_ITS ---
Test Reason : CHEST PAIN Blood Pressure : / mmHG Vent. Rate : 088 BPM Atrial Rate : 088 BPM P-R Int : 122 ms QRS Dur : 078 ms QT Int : 370 ms P-R-T Axes : 052 047 042 degrees QTc Int : 447 ms Normal sinus rhythm Possible Left atrial enlargement Borderline ECG When compared with ECG of 10-AUG-2020 19:42, No significant change was found Referred By: Linda Saldana Electronically Signed By:COSME KATHLEEN
--- NOTE | 2021-09-09 18:25 | ED.GENADULT ---
HPI - General Adult General Chief complaint: Dyspnea Stated complaint: r sided chest pain/cough Time Seen by Provider: 09/09/21 18:23 Related Data Home Medications Medication Instructions Recorded Confirmed aripiprazole 15 mg tablet 15 mg PO DAILY 08/10/20 09/10/21 fluoxetine 10 mg capsule 10 mg PO DAILY 08/10/20 09/10/21 fluoxetine 20 mg capsule 20 mg PO DAILY 08/10/20 09/10/21 gabapentin 600 mg tablet 1,200 mg PO TID 08/10/20 09/10/21 hydroxyzine pamoate 25 mg capsule 25 mg PO BID PRN 08/10/20 09/10/21 lisinopril 40 mg tablet 40 mg PO DAILY 08/10/20 09/10/21 loratadine 10 mg tablet 1 tab PO DAILY PRN 09/10/21 09/10/21 methadone 10 mg tablet 30 mg PO DAILY 09/10/21 mirtazapine 15 mg tablet 1 tab PO BEDTIME 09/10/21 09/10/21 sulfamethoxazole 800 1 tab PO MOTUWE 09/10/21 09/10/21 mg-trimethoprim 160 mg tablet (Bactrim DS) Previous Rx's Medication Instructions Recorded bictegravir 50 mg-emtricitabine 1 tab PO DAILY #30 tab 08/14/20 200 mg-tenofovir alafenam 25 mg tablet (Biktarvy) Allergies Allergy/AdvReac Type Severity Reaction Status Date / Time No Known Allergies Allergy Unverified 06/07/20 15:19 [No Known Allergies*] PMFSH Past Medical History Medical History Anemia Dementia Depression HIV (human immunodeficiency virus infection) Muscle spasms of both lower extremities TBI (traumatic brain injury) Social History Social History Household Members: Significant Other Housing: House Alcohol intake: never Patient Tobacco Use Status: Never used Tobacco Second Hand Smoke Exposure: No Use of substances other than those prescribed or required for medical reasons: No Substance Use Type: Crack/Cocaine Advance Directives: No Advance Directives Information Provided: No Patient : No service: No Current occupational status: unemployed Physical Exam Vital Signs: Vital Signs: Last Vital Signs Temp 99.0 F 09/10/21 13:53 Pulse 84 09/10/21 13:53 Resp 19 09/10/21 13:53 BP 179/102 H 09/10/21 13:53 Pulse Ox 95 09/10/21 13:53 BMI result Body Mass Index 22.1 Course Course Course Narrative: 18:25 - 36-year-old female who was recently admitted here on 08/10/2021 for bacteremia due to Streptococcus pneumonia/community-acquired pneumonia presenting to the ED with complaints of right-sided chest pain/lung pain with a cough that was very junky yesterday although no sputum production today. On exam patient is alert oriented x3. Not in any acute distress other than pain. Vital signs are stable within normal limits. No focal neuro deficits are noted. At this time labs, EKG, chest x-ray were ordered and patient was sent back to the waiting room for further evaluation treatment in the emergency department. Patient understands agrees with this plan. Medical Decision Making Lab Data Result diagrams: 09/09/21 23:44 09/09/21 23:45 Labs: Lab Results 09/09/21 09/09/21 09/09/21 Range/Units 23:43 23:44 23:44 WBC 2.6 L (4.8-10.8) X10*3/uL RBC 4.20 (4.20-5.50) X10*6/uL Hgb 10.0 L (12.0-16.0) g/dl Hct 32.7 L (37.0-47.0) % MCV 77.9 L (80.0-98.0) fL MCH 23.8 L (27.0-33.0) pg MCHC 30.6 L (31.0-35.0) g/dl RDW 14.7 (11.0-16.0) % Plt Count 158 L (160-400) X10*3/uL MPV 9.5 (9.4-12.3) fL Immature Gran % (Auto) 0.4 (0.0-0.4) % Neut % (Auto) 57.1 (45-73) % Lymph % (Auto) 31.7 (20-40) % [place] % (Auto) 10.4 (2-11) % Eos % (Auto) 0.0 (0-4) % Baso % (Auto) 0.4 (0-2) % Lymph # (Auto) 0.8 L (1.2-4.9) X10*3/uL [place] # (Auto) 0.3 (0.1-1.2) X10*3/uL Eos # (Auto) 0.0 (0.0-0.4) X10*3/uL Baso # (Auto) 0.0 (0.0-0.2) X10*3/uL Abs Immat Gran (auto) 0.01 (0.00-0.03) X10*3/uL Absolute Neuts (auto) 1.5 L (2.0-8.3) x10*3/uL Absolute Nucleated RBC 0.000 (0.0-0.012) X10*3/uL Nucleated RBC % (auto) 0.0 (0.0-0.2) /100WBC PT 14.9 H (9.9-13.0) SEC INR 1.3 H (0.9-1.1) Sodium (135-145) mmol/L Potassium (3.3-5.1) mmol/L Chloride (96-108) mmol/L Carbon Dioxide (22-29) mmol/L Anion Gap (12-20) BUN (9-16) mg/dL Creatinine (0.5-1.4) mg/dL Estim Creat Clear Calc Estimated GFR Random Glucose (60-115) mg/dL Lactic Acid (0.5-2.0) mmol/L Calcium (8.4-10.2) mg/dL Magnesium (1.6-2.6) mg/dL Total Bilirubin (0.0-1.0) mg/dL AST (5-31) U/L ALT (0-31) U/L Alkaline Phosphatase (39-117) U/L Troponin I High Sens 14.0 (<3.5-17.0) ng/L B-Natriuretic Peptide 44 (<100) pg/mL Total Protein (6.5-8.0) g/dL Albumin (3.5-5.0) g/dL Beta HCG, Quant mIU/mL Urine Color Urine Appearance Urine pH (5.0-8.0) Ur Specific [place] (1.005-1.025) Urine Protein (NEG-TRACE) MG/DL Urine Glucose (UA) (NEG) MG/DL Urine Ketones (NEG) MG/DL Urine Blood (NEG) Urine Nitrite (NEG) Ur Leukocyte Esterase (NEG) Urine Test (NEGATIVE) Urine Opiates Screen (Not Detect) Urine Fentanyl Screen (Not Detect) Ur Barbiturates Screen (Not Detect) Ur Phencyclidine Scrn (Not Detect) Ur Amphetamines Screen (Not Detect) U Benzodiazepines Scrn (Not Detect) Urine Cocaine Screen (Not Detect) U Marijuana (THC) Screen (Not Detect) COVID-19 (TIKA) (Negative) COVID-19 Clin Com 09/09/21 09/10/21 09/10/21 Range/Units 23:45 01:48 01:48 WBC (4.8-10.8) X10*3/uL RBC (4.20-5.50) X10*6/uL Hgb (12.0-16.0) g/dl Hct (37.0-47.0) % MCV (80.0-98.0) fL MCH (27.0-33.0) pg MCHC (31.0-35.0) g/dl RDW (11.0-16.0) % Plt Count (160-400) X10*3/uL MPV (9.4-12.3) fL Immature Gran % (Auto) (0.0-0.4) % Neut % (Auto) (45-73) % Lymph % (Auto) (20-40) % [place] % (Auto) (2-11) % Eos % (Auto) (0-4) % Baso % (Auto) (0-2) % Lymph # (Auto) (1.2-4.9) X10*3/uL [place] # (Auto) (0.1-1.2) X10*3/uL Eos # (Auto) (0.0-0.4) X10*3/uL Baso # (Auto) (0.0-0.2) X10*3/uL Abs Immat Gran (auto) (0.00-0.03) X10*3/uL Absolute Neuts (auto) (2.0-8.3) x10*3/uL Absolute Nucleated RBC (0.0-0.012) X10*3/uL Nucleated RBC % (auto) (0.0-0.2) /100WBC PT (9.9-13.0) SEC INR (0.9-1.1) Sodium 137 (135-145) mmol/L Potassium 4.4 (3.3-5.1) mmol/L Chloride 103 (96-108) mmol/L Carbon Dioxide 28 (22-29) mmol/L Anion Gap 10 L (12-20) BUN 16 (9-16) mg/dL Creatinine 0.87 (0.5-1.4) mg/dL Estim Creat Clear Calc 72.5 Estimated GFR > 60 Random Glucose 99 (60-115) mg/dL Lactic Acid (0.5-2.0) mmol/L Calcium 8.4 (8.4-10.2) mg/dL Magnesium 2.1 (1.6-2.6) mg/dL Total Bilirubin 0.2 (0.0-1.0) mg/dL AST 31 (5-31) U/L ALT 24 (0-31) U/L Alkaline Phosphatase 104 D (39-117) U/L Troponin I High Sens (<3.5-17.0) ng/L B-Natriuretic Peptide (<100) pg/mL Total Protein 9.2 H (6.5-8.0) g/dL Albumin 3.2 L D (3.5-5.0) g/dL Beta HCG, Quant < 2 mIU/mL Urine Color YELLOW Urine Appearance CLEAR Urine pH 6.0 (5.0-8.0) Ur Specific [place] 1.025 (1.005-1.025) Urine Protein TRACE (NEG-TRACE) MG/DL Urine Glucose (UA) NEG (NEG) MG/DL Urine Ketones NEG (NEG) MG/DL Urine Blood NEG (NEG) Urine Nitrite NEG (NEG) Ur Leukocyte Esterase NEG (NEG) Urine Test (NEGATIVE) Urine Opiates Screen Not Detected (Not Detect) Urine Fentanyl Screen POSITIVE H (Not Detect) Ur Barbiturates Screen Not Detected (Not Detect) Ur Phencyclidine Scrn Not Detected (Not Detect) Ur Amphetamines Screen Not Detected (Not Detect) U Benzodiazepines Scrn Not Detected (Not Detect) Urine Cocaine Screen POSITIVE H (Not Detect) U Marijuana (THC) Screen POSITIVE H (Not Detect) COVID-19 (TIKA) (Negative) COVID-19 Clin Com 09/10/21 09/10/21 09/10/21 Range/Units 01:48 01:49 02:17 WBC (4.8-10.8) X10*3/uL RBC (4.20-5.50) X10*6/uL Hgb (12.0-16.0) g/dl Hct (37.0-47.0) % MCV (80.0-98.0) fL MCH (27.0-33.0) pg MCHC (31.0-35.0) g/dl RDW (11.0-16.0) % Plt Count (160-400) X10*3/uL MPV (9.4-12.3) fL Immature Gran % (Auto) (0.0-0.4) % Neut % (Auto) (45-73) % Lymph % (Auto) (20-40) % [place] % (Auto) (2-11) % Eos % (Auto) (0-4) % Baso % (Auto) (0-2) % Lymph # (Auto) (1.2-4.9) X10*3/uL [place] # (Auto) (0.1-1.2) X10*3/uL Eos # (Auto) (0.0-0.4) X10*3/uL Baso # (Auto) (0.0-0.2) X10*3/uL Abs Immat Gran (auto) (0.00-0.03) X10*3/uL Absolute Neuts (auto) (2.0-8.3) x10*3/uL Absolute Nucleated RBC (0.0-0.012) X10*3/uL Nucleated RBC % (auto) (0.0-0.2) /100WBC PT (9.9-13.0) SEC INR (0.9-1.1) Sodium (135-145) mmol/L Potassium (3.3-5.1) mmol/L Chloride (96-108) mmol/L Carbon Dioxide (22-29) mmol/L Anion Gap (12-20) BUN (9-16) mg/dL Creatinine (0.5-1.4) mg/dL Estim Creat Clear Calc Estimated GFR Random Glucose (60-115) mg/dL Lactic Acid 0.4 L (0.5-2.0) mmol/L Calcium (8.4-10.2) mg/dL Magnesium (1.6-2.6) mg/dL Total Bilirubin (0.0-1.0) mg/dL AST (5-31) U/L ALT (0-31) U/L Alkaline Phosphatase (39-117) U/L Troponin I High Sens (<3.5-17.0) ng/L B-Natriuretic Peptide (<100) pg/mL Total Protein (6.5-8.0) g/dL Albumin (3.5-5.0) g/dL Beta HCG, Quant mIU/mL Urine Color Urine Appearance Urine pH (5.0-8.0) Ur Specific [place] (1.005-1.025) Urine Protein (NEG-TRACE) MG/DL Urine Glucose (UA) (NEG) MG/DL Urine Ketones (NEG) MG/DL Urine Blood (NEG) Urine Nitrite (NEG) Ur Leukocyte Esterase (NEG) Urine Test NEGATIVE (NEGATIVE) Urine Opiates Screen (Not Detect) Urine Fentanyl Screen (Not Detect) Ur Barbiturates Screen (Not Detect) Ur Phencyclidine Scrn (Not Detect) Ur Amphetamines Screen (Not Detect) U Benzodiazepines Scrn (Not Detect) Urine Cocaine Screen (Not Detect) U Marijuana (THC) Screen (Not Detect) COVID-19 (TIKA) Negative (Negative) COVID-19 Clin Com See Note Discharge Plan Discharge Clinical Impression: Community acquired pneumonia Qualifiers: Laterality: right Lung location: middle lobe of lung Qualified Code(s): J18.9 - Pneumonia, unspecified organism HIV (human immunodeficiency virus infection) Qualifiers: HIV symptom status: currently asymptomatic, with history of HIV-related illness Qualified Code(s): B20 - Human immunodeficiency virus [HIV] disease Patient Disposition: Admitted As Inpatient
[2021-09-09 23:53] LABS: MANUAL DIFF FLAG NO
[2021-09-09 23:55] LABS: Basophils Percent Auto 0.4 % (0-2); Hematocrit 32.7 % (37.0-47.0); Imm Gran Abs Auto 0.01 X10*3/uL (0.00-0.03); Imm Gran Pct Auto 0.4 % (0.0-0.4); Lymphocytes Absolute Auto 0.8 X10*3/uL (1.2-4.9); Lymphocytes Percent Auto 31.7 % (20-40); Mean Corpuscular HGB Conc 30.6 g/dl (31.0-35.0); Mean Corpuscular Hemoglobin 23.8 pg (27.0-33.0); Mean Corpuscular Volume 77.9 fL (80.0-98.0); Mean Platelet Volume 9.5 fL (9.4-12.3); Monocytes Absolute Auto 0.3 X10*3/uL (0.1-1.2); Monocytes Percent Auto 10.4 % (2-11); Neutrophils Absolute Auto 1.5 x10*3/uL (2.0-8.3); Neutrophils Percent Auto 57.1 % (45-73); Platelet Count 158 X10*3/uL (160-400); Red Cell Distribution Width 14.7 % (11.0-16.0); White Blood Count 2.6 X10*3/uL (4.8-10.8)
[2021-09-10] VITALS (10 sets, daily range): BP systolic 137–179; BP diastolic 80–102; PULSE 64–96; RESP 12–21; TEMP 36.2–37.3; O2SAT 91–99
[2021-09-10 00:10] LABS: INTERNATIONAL NORM RATIO 1.3 (0.9-1.1); Prothrombin Time 14.9 SEC (9.9-13.0)
[2021-09-10 00:12] LABS: Alanine Aminotransferase 24 U/L (0-31); Albumin Level 3.2 g/dL (3.5-5.0); Alkaline Phosphatase 104 U/L (39-117); Anion Gap 10 (12-20); Aspartate Amino Transferase 31 U/L (5-31); Bilirubin Total 0.2 mg/dL (0.0-1.0); Blood Urea Nitrogen 16 mg/dL (9-16); Calcium 8.4 mg/dL (8.4-10.2); Carbon Dioxide 28 mmol/L (22-29); Chloride 103 mmol/L (96-108); Creatinine Clr Calc Pharmacy 72.5; Estimated Glomerular Filt Rate > 60; Glucose Random 99 mg/dL (60-115); Magnesium 2.1 mg/dL (1.6-2.6); Potassium 4.4 mmol/L (3.3-5.1); Sodium 137 mmol/L (135-145); Total Protein 9.2 g/dL (6.5-8.0)
[2021-09-10 00:16] LABS: B Type Natriuretic Peptide 44 pg/mL (<100)
[2021-09-10 00:18] LABS: HCG Quantitative < 2 mIU/mL
--- NOTE | 2021-09-10 01:22 | ED_ITS ---
HPI - SOB/Dyspnea General Chief Complaint: Dyspnea Stated Complaint: r sided chest pain/cough Time Seen by Provider: 09/09/21 18:23 Source: patient Mode of arrival: ambulatory Limitations: no limitations History of Present Illness HPI Narrative: Patient's history of HIV disease last CD4 count was 97 on 08/10 when she was admitted for right-sided pneumonia patient did not take her HIV medication since then started just last week, took Levaquin for pneumonia at that time and felt better patient had strep pneumonia bacteremia on 08/10/2020. Patient comes here for 1 week of right-sided chest pain with dry cough no fever + chills patient uses IV cocaine which she used yesterday patient already been vaccinated against COVID Related Data Home Medications Medication Instructions Recorded Confirmed aripiprazole 15 mg tablet 15 mg PO DAILY 08/10/20 08/10/20 baclofen 10 mg tablet 10 mg PO BID PRN 08/10/20 08/10/20 cholecalciferol (vitamin D3) 50 50 mcg PO DAILY 08/10/20 08/10/20 mcg (2,000 unit) capsule fluoxetine 10 mg capsule 10 mg PO DAILY 08/10/20 08/10/20 fluoxetine 20 mg capsule 20 mg PO DAILY 08/10/20 08/10/20 gabapentin 600 mg tablet 1,200 mg PO TID 08/10/20 08/10/20 hydralazine 10 mg tablet 10 mg PO BID PRN 08/10/20 08/10/20 hydroxyzine pamoate 25 mg capsule 25 mg PO BID PRN 08/10/20 08/10/20 lisinopril 40 mg tablet 40 mg PO DAILY 08/10/20 08/10/20 Previous Rx's Medication Instructions Recorded bictegravir 50 mg-emtricitabine 1 tab PO DAILY #30 tab 08/14/20 200 mg-tenofovir alafenam 25 mg tablet (Biktarvy) ferrous sulfate 324 mg (65 mg 324 mg PO DAILY #30 tab 08/14/20 iron) tablet,delayed release levofloxacin 500 mg tablet 500 mg PO Q24H #11 tab 08/14/20 sulfamethoxazole 800 1 tab PO 3XW #10 tab 08/14/20 mg-trimethoprim 160 mg tablet (Bactrim DS) Allergies Allergy/AdvReac Type Severity Reaction Status Date / Time No Known Allergies Allergy Unverified 06/07/20 15:19 [No Known Allergies*] Review of Systems Review of Systems: Yes all other systems are reviewed and are negative [facility] Past Medical History Medical History Anemia Dementia Depression HIV (human immunodeficiency virus infection) Muscle spasms of both lower extremities TBI (traumatic brain injury) Social History Social History Household Members: Significant Other Housing: House Alcohol intake: never Patient Tobacco Use Status: Never used Tobacco Second Hand Smoke Exposure: No Use of substances other than those prescribed or required for medical reasons: No Substance Use Type: Crack/Cocaine Advance Directives: No Advance Directives Information Provided: No Patient : No service: No Current occupational status: unemployed Physical Exam Vital Signs: Vital Signs: Last Vital Signs Temp 98.4 F 09/10/21 06:01 Pulse 85 09/10/21 06:01 Resp 21 H 09/10/21 06:01 BP 151/97 H 09/10/21 06:01 Pulse Ox 98 09/10/21 06:01 BMI result Body Mass Index 22.1 Appearance: Alert. Oriented X3. No acute distress. Eyes: No pallor/ icterus ENT: Pharynx normal. Oral Mucosa moist Neck: Normal inspection. Neck supple. CVS: Normal heart rate and rhythm. Pulses normal. Respiratory: No respiratory distress. Equal air entry bilateral, no wheezing/rales/rhonchi, bronchial breathing right axillary area Abdomen: Soft and nontender. Bowel sounds are present, no mass palpable, no CVA tenderness Skin: Skin warm and dry. Normal skin color. Normal skin turgor. Extremities: No lower extremity edema. No calf tenderness Neuro: Oriented X 3. No motor deficit. MDM - SOB/Dyspnea MDM Narrative Medical decision making narrative: Patient with HIV with low CD4 count with strep pneumonia bacteremia with strep pneumonia on 08/10 comes here with similar symptoms as she had last year chest x-ray showed similar area of consolidation as you make strep pneumonia bacteremia. Will start patient on vancomycin Rocephin and Zithromax also give her p.o. Bactrim patient with leukopenia secondary to HIV lactic acid level is normal Medical Records Attestation: I reviewed the patient's medical records. Lab Data Attestation: I reviewed the patient's lab results. Result diagrams: 09/09/21 23:44 09/09/21 23:45 Labs: Lab Results 09/09/21 09/09/21 09/09/21 Range/Units 23:43 23:44 23:44 WBC 2.6 L (4.8-10.8) X10*3/uL RBC 4.20 (4.20-5.50) X10*6/uL Hgb 10.0 L (12.0-16.0) g/dl Hct 32.7 L (37.0-47.0) % MCV 77.9 L (80.0-98.0) fL MCH 23.8 L (27.0-33.0) pg MCHC 30.6 L (31.0-35.0) g/dl RDW 14.7 (11.0-16.0) % Plt Count 158 L (160-400) X10*3/uL MPV 9.5 (9.4-12.3) fL Immature Gran % (Auto) 0.4 (0.0-0.4) % Neut % (Auto) 57.1 (45-73) % Lymph % (Auto) 31.7 (20-40) % [place] % (Auto) 10.4 (2-11) % Eos % (Auto) 0.0 (0-4) % Baso % (Auto) 0.4 (0-2) % Lymph # (Auto) 0.8 L (1.2-4.9) X10*3/uL [place] # (Auto) 0.3 (0.1-1.2) X10*3/uL Eos # (Auto) 0.0 (0.0-0.4) X10*3/uL Baso # (Auto) 0.0 (0.0-0.2) X10*3/uL Abs Immat Gran (auto) 0.01 (0.00-0.03) X10*3/uL Absolute Neuts (auto) 1.5 L (2.0-8.3) x10*3/uL Absolute Nucleated RBC 0.000 (0.0-0.012) X10*3/uL Nucleated RBC % (auto) 0.0 (0.0-0.2) /100WBC PT 14.9 H (9.9-13.0) SEC INR 1.3 H (0.9-1.1) Sodium (135-145) mmol/L Potassium (3.3-5.1) mmol/L Chloride (96-108) mmol/L Carbon Dioxide (22-29) mmol/L Anion Gap (12-20) BUN (9-16) mg/dL Creatinine (0.5-1.4) mg/dL Estim Creat Clear Calc Estimated GFR Random Glucose (60-115) mg/dL Lactic Acid (0.5-2.0) mmol/L Calcium (8.4-10.2) mg/dL Magnesium (1.6-2.6) mg/dL Total Bilirubin (0.0-1.0) mg/dL AST (5-31) U/L ALT (0-31) U/L Alkaline Phosphatase (39-117) U/L Troponin I High Sens 14.0 (<3.5-17.0) ng/L B-Natriuretic Peptide 44 (<100) pg/mL Total Protein (6.5-8.0) g/dL Albumin (3.5-5.0) g/dL Beta HCG, Quant mIU/mL Urine Color Urine Appearance Urine pH (5.0-8.0) Ur Specific [place] (1.005-1.025) Urine Protein (NEG-TRACE) MG/DL Urine Glucose (UA) (NEG) MG/DL Urine Ketones (NEG) MG/DL Urine Blood (NEG) Urine Nitrite (NEG) Ur Leukocyte Esterase (NEG) Urine Test (NEGATIVE) Urine Opiates Screen (Not Detect) Urine Fentanyl Screen (Not Detect) Ur Barbiturates Screen (Not Detect) Ur Phencyclidine Scrn (Not Detect) Ur Amphetamines Screen (Not Detect) U Benzodiazepines Scrn (Not Detect) Urine Cocaine Screen (Not Detect) U Marijuana (THC) Screen (Not Detect) COVID-19 (TIKA) (Negative) COVID-19 Clin Com 09/09/21 09/10/21 09/10/21 Range/Units 23:45 01:48 01:48 WBC (4.8-10.8) X10*3/uL RBC (4.20-5.50) X10*6/uL Hgb (12.0-16.0) g/dl Hct (37.0-47.0) % MCV (80.0-98.0) fL MCH (27.0-33.0) pg MCHC (31.0-35.0) g/dl RDW (11.0-16.0) % Plt Count (160-400) X10*3/uL MPV (9.4-12.3) fL Immature Gran % (Auto) (0.0-0.4) % Neut % (Auto) (45-73) % Lymph % (Auto) (20-40) % [place] % (Auto) (2-11) % Eos % (Auto) (0-4) % Baso % (Auto) (0-2) % Lymph # (Auto) (1.2-4.9) X10*3/uL [place] # (Auto) (0.1-1.2) X10*3/uL Eos # (Auto) (0.0-0.4) X10*3/uL Baso # (Auto) (0.0-0.2) X10*3/uL Abs Immat Gran (auto) (0.00-0.03) X10*3/uL Absolute Neuts (auto) (2.0-8.3) x10*3/uL Absolute Nucleated RBC (0.0-0.012) X10*3/uL Nucleated RBC % (auto) (0.0-0.2) /100WBC PT (9.9-13.0) SEC INR (0.9-1.1) Sodium 137 (135-145) mmol/L Potassium 4.4 (3.3-5.1) mmol/L Chloride 103 (96-108) mmol/L Carbon Dioxide 28 (22-29) mmol/L Anion Gap 10 L (12-20) BUN 16 (9-16) mg/dL Creatinine 0.87 (0.5-1.4) mg/dL Estim Creat Clear Calc 72.5 Estimated GFR > 60 Random Glucose 99 (60-115) mg/dL Lactic Acid (0.5-2.0) mmol/L Calcium 8.4 (8.4-10.2) mg/dL Magnesium 2.1 (1.6-2.6) mg/dL Total Bilirubin 0.2 (0.0-1.0) mg/dL AST 31 (5-31) U/L ALT 24 (0-31) U/L Alkaline Phosphatase 104 D (39-117) U/L Troponin I High Sens (<3.5-17.0) ng/L B-Natriuretic Peptide (<100) pg/mL Total Protein 9.2 H (6.5-8.0) g/dL Albumin 3.2 L D (3.5-5.0) g/dL Beta HCG, Quant < 2 mIU/mL Urine Color YELLOW Urine Appearance CLEAR Urine pH 6.0 (5.0-8.0) Ur Specific [place] 1.025 (1.005-1.025) Urine Protein TRACE (NEG-TRACE) MG/DL Urine Glucose (UA) NEG (NEG) MG/DL Urine Ketones NEG (NEG) MG/DL Urine Blood NEG (NEG) Urine Nitrite NEG (NEG) Ur Leukocyte Esterase NEG (NEG) Urine Test (NEGATIVE) Urine Opiates Screen Not Detected (Not Detect) Urine Fentanyl Screen POSITIVE H (Not Detect) Ur Barbiturates Screen Not Detected (Not Detect) Ur Phencyclidine Scrn Not Detected (Not Detect) Ur Amphetamines Screen Not Detected (Not Detect) U Benzodiazepines Scrn Not Detected (Not Detect) Urine Cocaine Screen POSITIVE H (Not Detect) U Marijuana (THC) Screen POSITIVE H (Not Detect) COVID-19 (TIKA) (Negative) COVID-19 Clin Com 09/10/21 09/10/21 09/10/21 Range/Units 01:48 01:49 02:17 WBC (4.8-10.8) X10*3/uL RBC (4.20-5.50) X10*6/uL Hgb (12.0-16.0) g/dl Hct (37.0-47.0) % MCV (80.0-98.0) fL MCH (27.0-33.0) pg MCHC (31.0-35.0) g/dl RDW (11.0-16.0) % Plt Count (160-400) X10*3/uL MPV (9.4-12.3) fL Immature Gran % (Auto) (0.0-0.4) % Neut % (Auto) (45-73) % Lymph % (Auto) (20-40) % [place] % (Auto) (2-11) % Eos % (Auto) (0-4) % Baso % (Auto) (0-2) % Lymph # (Auto) (1.2-4.9) X10*3/uL [place] # (Auto) (0.1-1.2) X10*3/uL Eos # (Auto) (0.0-0.4) X10*3/uL Baso # (Auto) (0.0-0.2) X10*3/uL Abs Immat Gran (auto) (0.00-0.03) X10*3/uL Absolute Neuts (auto) (2.0-8.3) x10*3/uL Absolute Nucleated RBC (0.0-0.012) X10*3/uL Nucleated RBC % (auto) (0.0-0.2) /100WBC PT (9.9-13.0) SEC INR (0.9-1.1) Sodium (135-145) mmol/L Potassium (3.3-5.1) mmol/L Chloride (96-108) mmol/L Carbon Dioxide (22-29) mmol/L Anion Gap (12-20) BUN (9-16) mg/dL Creatinine (0.5-1.4) mg/dL Estim Creat Clear Calc Estimated GFR Random Glucose (60-115) mg/dL Lactic Acid 0.4 L (0.5-2.0) mmol/L Calcium (8.4-10.2) mg/dL Magnesium (1.6-2.6) mg/dL Total Bilirubin (0.0-1.0) mg/dL AST (5-31) U/L ALT (0-31) U/L Alkaline Phosphatase (39-117) U/L Troponin I High Sens (<3.5-17.0) ng/L B-Natriuretic Peptide (<100) pg/mL Total Protein (6.5-8.0) g/dL Albumin (3.5-5.0) g/dL Beta HCG, Quant mIU/mL Urine Color Urine Appearance Urine pH (5.0-8.0) Ur Specific [place] (1.005-1.025) Urine Protein (NEG-TRACE) MG/DL Urine Glucose (UA) (NEG) MG/DL Urine Ketones (NEG) MG/DL Urine Blood (NEG) Urine Nitrite (NEG) Ur Leukocyte Esterase (NEG) Urine Test NEGATIVE (NEGATIVE) Urine Opiates Screen (Not Detect) Urine Fentanyl Screen (Not Detect) Ur Barbiturates Screen (Not Detect) Ur Phencyclidine Scrn (Not Detect) Ur Amphetamines Screen (Not Detect) U Benzodiazepines Scrn (Not Detect) Urine Cocaine Screen (Not Detect) U Marijuana (THC) Screen (Not Detect) COVID-19 (TIKA) Negative (Negative) COVID-19 Clin Com See Note Discharge Plan Discharge Clinical Impression: Community acquired pneumonia Qualifiers: Laterality: right Lung location: middle lobe of lung Qualified Code(s): J18.9 - Pneumonia, unspecified organism Patient Disposition: Admitted As Inpatient
--- NOTE | 2021-09-10 01:27 | PC.NURSE ---
pt a&o, no sob, pt reports having chest pain from pneumonia she believes, pt eating and drinking food. no sign of respiratory distress
[2021-09-10 01:56] LABS: Appearance Urine CLEAR; Color Urine YELLOW; Glucose Urine UA NEG (NEG); Leukocyte Esterase Urine NEG (NEG); Nitrite Urine NEG (NEG); Specific Gravity - Urine 1.025 (1.005-1.025); Urine Blood NEG (NEG); Urine Ketones NEG (NEG); Urine Protein TRACE MG/DL (NEG-TRACE)
[2021-09-10 01:59] LABS: UPreg QC Valid YES; Urine Pregnancy NEGATIVE (NEGATIVE)
--- NOTE | 2021-09-10 02:03 | PC.NURSE ---
labs and urine collected. Pt placed on bedside monitor. pt change into hospital attire.
[2021-09-10 02:06] LABS: Lactic Acid 0.4 mmol/L (0.5-2.0)
[2021-09-10] MEDS: cefTRIAXone sodium 1 GM in 0.9 % Sodium Chloride 50 ML IV ×2 (02:08→20:11)
[2021-09-10 02:11] LABS: Amphetamine Screen Urine Not Detected (Not Detect); Barbiturates, Urine Not Detected (Not Detect); Benzodiazepines Screen Urine Not Detected (Not Detect); Cannabinoid Screen Urine POSITIVE (Not Detect); Cocaine Screen Urine POSITIVE (Not Detect); Fentanyl, urine POSITIVE (Not Detect); Opiate Screen Urine Not Detected (Not Detect); Phencyclidine Screen Urine Not Detected (Not Detect)
--- NOTE | 2021-09-10 02:11 | PC.NURSE ---
Medicated per Mar.
[2021-09-10 02:40] LABS: COVID-19 Test Negative (Negative); IDNOW Serial# 55D5AD1C
[2021-09-10] MEDS: vancomycin HCL 1,000 MG in 0.9 % Sodium Chloride 250 ML 270 MG IV (02:45)
--- NOTE | 2021-09-10 02:52 | PC.NURSE ---
medicated with second antibiotic, pt is sleeping no sign of respiratory distress.
[2021-09-10] MEDS: Sulfamethox/Trimeth 800/160 TABLET 1 TAB PO (03:22)
--- NOTE | 2021-09-10 03:24 | PC.NURSE ---
Per provider in [place] , he would like pt to receive azithromycin. medicated per nov.
[2021-09-10] MEDS: Azithromycin 500 MG in 0.9 % Sodium Chloride 250 ML 125 MG IV (04:01)
--- NOTE | 2021-09-10 05:12 | PM.IMHP ---
History of Present Illness Date of Service: 09/10/21 Chief Complaint: Chest pain 36-year-old female with a past medical history of hypertension, HIV -recently started on Biktarvy, anxiety, depression, history of streptococcal pneumonia with bacteremia about a year ago presented to the hospital today with a chief complaint of chest pain. Patient reports that over the past 3 days she has been having intermittent episodes of chest pain, located on the left side of the chest, sharp in nature, worsens with coughing; also had shortness of breath; complains of cough. Denies any sputum. Denies any numbness tingling or focal weakness. Denies any recent travel or sick contacts. Patient reports that she was off her HIV medications for about a ER and recently started about a week ago. Denies any rash, nausea vomiting or diarrhea. patient Reported that she had had CD4 count checked about in May and was noted to be around 300. Also says that prior to that it was 94, improved now. Review of all other systems is negative except mentioned above ER course: Per ER team patient's vitals are stable, labs essentially benign, troponin negative, EKG nonischemic, chest x-ray showed findings concerning for pneumonia similar to prior x-ray. Given immunocompromised state and recently started on Biktarvy patient was empirically started on ceftriaxone and azithromycin. Patient also received Bactrim. [facility] Medical History Anemia Dementia Depression HIV (human immunodeficiency virus infection) Muscle spasms of both lower extremities TBI (traumatic brain injury) Pertinent family history: Diabetes; heart disease in parents Social History Household Members: Significant Other Housing: House Alcohol intake: never Patient Tobacco Use Status: Never used Tobacco Second Hand Smoke Exposure: No Use of substances other than those prescribed or required for medical reasons: No Substance Use Type: Crack/Cocaine Advance Directives: No Advance Directives Information Provided: No Patient : No service: No Current occupational status: unemployed Meds Allergies Allergy/AdvReac Type Severity Reaction Status Date / Time No Known Allergies Allergy Unverified 06/07/20 15:19 [No Known Allergies*] Active Medications: Current Medications Acetaminophen (Acetaminophen 325 Mg Tablet) 650 mg PO Q6H PRN PRN Reason: Pain, Mild (Pain Scale 1-3) Azithromycin (Azithromycin 500 Mg Tablet) 500 mg PO Q24H [facility] Ceftriaxone Sodium 1 gm/ (Sodium Chloride) 50 mls @ 100 mls/hr IV Q12H [facility] Melatonin (Melatonin 3 Mg Tablet) 6 mg PO BEDTIME PRN PRN Reason: Insomnia Pharmacy Consult (Consult Rx Vancomycin Dosing) 1 each MISCELLANE DAILY PRN PRN Reason: Consult order Senna (Sennosides 8.6 Mg Tablet) 17.2 mg PO BEDTIME PRN PRN Reason: Constipation Sodium Chloride (0.9 % Sodium Chloride Flush 3 Ml Syringe) 3 ml IVFLUSH QSHIFT [facility] Home Medications Medication Instructions Recorded Confirmed Last Taken Type aripiprazole 15 mg tablet 15 mg PO DAILY 08/10/20 08/10/20 Unknown History baclofen 10 mg tablet 10 mg PO BID PRN 08/10/20 08/10/20 Unknown History cholecalciferol (vitamin D3) 50 50 mcg PO DAILY 08/10/20 08/10/20 Unknown History mcg (2,000 unit) capsule fluoxetine 10 mg capsule 10 mg PO DAILY 08/10/20 08/10/20 Unknown History fluoxetine 20 mg capsule 20 mg PO DAILY 08/10/20 08/10/20 Unknown History gabapentin 600 mg tablet 1,200 mg PO TID 08/10/20 08/10/20 Unknown History hydralazine 10 mg tablet 10 mg PO BID PRN 08/10/20 08/10/20 Unknown History hydroxyzine pamoate 25 mg capsule 25 mg PO BID PRN 08/10/20 08/10/20 Unknown History lisinopril 40 mg tablet 40 mg PO DAILY 08/10/20 08/10/20 Unknown History Physical Exam Vital Signs and Narrative: Vital Signs: Last Vital Signs Temp 98.2 F 09/10/21 02:00 Pulse 89 09/10/21 02:00 Resp 18 09/10/21 02:00 BP 150/93 H 09/10/21 02:00 Pulse Ox 97 09/10/21 02:00 BMI result Body Mass Index 22.1 Gen: Appears be in no acute distress HEENT: NCAT, Moist mucosa. Pulmonary: coarse breath sounds, fair air entry CVS: Normal S1-S2 Abdomen: BS+, Soft, Nontender Extremities: Warm well perfused Neuro: Alert and awake. Results Labs CBC and Chem 7: 09/09/21 23:44 09/09/21 23:45 Labs: Laboratory Results - last 24 hr 09/09/21 09/09/21 09/09/21 23:43 23:44 23:44 MCV 77.9 L MCH 23.8 L MCHC 30.6 L RDW 14.7 Plt Count 158 L MPV 9.5 Immature Gran % (Auto) 0.4 Neut % (Auto) 57.1 Lymph % (Auto) 31.7 [place] % (Auto) 10.4 Eos % (Auto) 0.0 Baso % (Auto) 0.4 Lymph # (Auto) 0.8 L [place] # (Auto) 0.3 Eos # (Auto) 0.0 Baso # (Auto) 0.0 Abs Immat Gran (auto) 0.01 Absolute Neuts (auto) 1.5 L Absolute Nucleated RBC 0.000 Nucleated RBC % (auto) 0.0 PT 14.9 H INR 1.3 H Anion Gap Estim Creat Clear Calc Estimated GFR Random Glucose Lactic Acid Calcium Magnesium Total Bilirubin AST ALT Alkaline Phosphatase Troponin I High Sens 14.0 B-Natriuretic Peptide 44 Total Protein Albumin Beta HCG, Quant Urine Color Urine Appearance Urine pH Ur Specific [employer] Urine Protein Urine Glucose (UA) Urine Ketones Urine Blood Urine Nitrite Ur Leukocyte Esterase Urine Test Urine Opiates Screen Urine Fentanyl Screen Ur Barbiturates Screen Ur Phencyclidine Scrn Ur Amphetamines Screen U Benzodiazepines Scrn Urine Cocaine Screen U Marijuana (THC) Screen COVID-19 (TIKA) COVID-19 Clin Com 09/09/21 09/10/21 09/10/21 23:45 01:48 01:48 MCV MCH MCHC RDW Plt Count MPV Immature Gran % (Auto) Neut % (Auto) Lymph % (Auto) [place] % (Auto) Eos % (Auto) Baso % (Auto) Lymph # (Auto) [place] # (Auto) Eos # (Auto) Baso # (Auto) Abs Immat Gran (auto) Absolute Neuts (auto) Absolute Nucleated RBC Nucleated RBC % (auto) PT INR Anion Gap 10 L Estim Creat Clear Calc 72.5 Estimated GFR > 60 Random Glucose 99 Lactic Acid Calcium 8.4 Magnesium 2.1 Total Bilirubin 0.2 AST 31 ALT 24 Alkaline Phosphatase 104 D Troponin I High Sens B-Natriuretic Peptide Total Protein 9.2 H Albumin 3.2 L D Beta HCG, Quant < 2 Urine Color YELLOW Urine Appearance CLEAR Urine pH 6.[address] [employer] 1.025 Urine Protein TRACE Urine Glucose (UA) NEG Urine Ketones NEG Urine Blood NEG Urine Nitrite NEG Ur Leukocyte Esterase NEG Urine Test Urine Opiates Screen Not Detected Urine Fentanyl Screen POSITIVE H Ur Barbiturates Screen Not Detected Ur Phencyclidine Scrn Not Detected Ur Amphetamines Screen Not Detected U Benzodiazepines Scrn Not Detected Urine Cocaine Screen POSITIVE H U Marijuana (THC) Screen POSITIVE H COVID-19 (TIKA) COVID-19 Clin Com 09/10/21 09/10/21 09/10/21 01:48 01:49 02:17 MCV MCH MCHC RDW Plt Count MPV Immature Gran % (Auto) Neut % (Auto) Lymph % (Auto) [place] % (Auto) Eos % (Auto) Baso % (Auto) Lymph # (Auto) [place] # (Auto) Eos # (Auto) Baso # (Auto) Abs Immat Gran (auto) Absolute Neuts (auto) Absolute Nucleated RBC Nucleated RBC % (auto) PT INR Anion Gap Estim Creat Clear Calc Estimated GFR Random Glucose Lactic Acid 0.4 L Calcium Magnesium Total Bilirubin AST ALT Alkaline Phosphatase Troponin I High Sens B-Natriuretic Peptide Total Protein Albumin Beta HCG, Quant Urine Color Urine Appearance Urine pH Ur Specific [employer] Urine Protein Urine Glucose (UA) Urine Ketones Urine Blood Urine Nitrite Ur Leukocyte Esterase Urine Test NEGATIVE Urine Opiates Screen Urine Fentanyl Screen Ur Barbiturates Screen Ur Phencyclidine Scrn Ur Amphetamines Screen U Benzodiazepines Scrn Urine Cocaine Screen U Marijuana (THC) Screen COVID-19 (TIKA) Negative COVID-19 Clin Com See Note Imaging Radiologist's Impressions: Impressions Chest X-Ray 09/09/21 19:05 IMPRESSION: Persistent chronic right perihilar airspace opacity unchanged since chest x-ray 04/26/2021. Interval resolution of the lingular opacity since prior chest x-ray. Assessment and Plan (1) Community acquired pneumonia: Qualifiers: Laterality: right Lung location: middle lobe of lung Qualified Code(s): J18.9 - Pneumonia, unspecified organism Status: Acute 36-year-old female with a past medical history of hypertension, HIV -recently started on Biktarvy, anxiety, depression, history of streptococcal pneumonia with bacteremia about a year ago presented to the hospital today with a chief complaint of chest pain. Noted to have pneumonia. Admitted for further management. Pneumonia: Given concerns for immunocompromised state secondary to noncompliance with HIV medications , will Continue ceftriaxone azithromycin. Patient currently saturating well on room air. Id consult for further recommendations. Chest pain: Atypical in nature. Initial troponin negative. EKG nonischemic. Repeat troponin pending. Will also obtain D-dimer and if positive to consider CT chest with PE protocol. History of HIV: Patient recently started on Biktarvy about a week ago. Patient also reports that she had CD4 count checked few months ago and was noted to be around 300. Will defer to the ID for further evaluations lows see full consult. For all other chronic conditions, home medications will be continued once med rec is done.Pt doesnot recalll her home meds; Will defer to day team to confirm pt home meds with PCP in AM. DVT prophylaxis: SCD boots Code status: Full code Quality Stroke Does the patient have a stroke diagnosis?: No VTE Prior VTE?: No VTE Risk Level:: Medical - low VTE Device Contraindication: N/A - Device Ordered VTE Drug Contraindication: Treatment Not Indicated
--- NOTE | 2021-09-10 05:45 | PC.NURSE ---
pt sleeping with no distress. unable to complete med rec. [facility] closed. pt does not know medications.
[2021-09-10] MEDS: 0.9 % Sodium Chloride Flush 3 ML SYRINGE IVFLUSH ×2 (07:16→21:05)
[2021-09-10 07:48] LABS: D Dimer High Sensitivity 354 NG/ML
[2021-09-10 08:03] LABS: Troponin-I High Sensitivity 11.5 ng/L (<3.5-17.0)
--- NOTE | 2021-09-10 11:09 | PM.EVENT ---
Event Note Date of Service: 09/10/21 Event Note: 36-year-old female with a past medical history of hypertension, HIV -recently started on Biktarvy, anxiety, depression, history of streptococcal pneumonia with bacteremia about a year ago presented to the hospital today with a chief complaint of chest pain.? Noted to have pneumonia.? Admitted for further management.? Pneumonia. Given concerns for immunocompromised state secondary to noncompliance with HIV medications , will Continue ceftriaxone azithromycin.? Patient currently saturating well on room air. Id consult for further recommendations.? Chest pain. Atypical in nature.? Initial troponin negative.? EKG nonischemic.? Repeat troponin pending.? Elevated ddimer will obtain CTA to r/o PE History of HIV Patient recently started on Biktarvy about a week ago.? Patient also reports that she had CD4 count checked few months ago and was noted to be around 300. Will defer to the ID for further evaluations lows see full consult.? Substance abuse. Methadone addiction medicine consult DVT prophylaxis: SCD boots Code status:? Full code Attending Dr. Peters
--- NOTE | 2021-09-10 11:27 | PHA.MEDREC ---
Pharmacy Consult ? Medication Reconciliation Pharmacy has completed the medication reconciliation. Patient takes methadone from [facility]. Need to send a release form for verification of last dose. Samantha Harrell, ÁngelD
[2021-09-10] MEDS: iohexoL 350 MG/ML 100 ML INFUS..BTL 65 ML IV (11:46)
--- NOTE | 2021-09-10 13:15 | HE.PHANOTE ---
Methadone confirmation Confirmed methadone dose was 30 mg last given 09/09/2021 @ 0856. Confirm with KAREN Osuna, ÁngelD
[2021-09-10] MEDS: Acetaminophen 325 MG TABLET 650 MG PO (13:59)
[2021-09-10] MEDS: methADONE HCl 20 MG/2 ML ORAL.CONC 30 MG PO (14:00)
--- NOTE | 2021-09-10 14:38 | PC.NURSE ---
per faxed report pema ratliff per pt's methadone: last dose was on 09/09/21 at 0856 per kirit hawk
--- NOTE | 2021-09-10 15:59 | P.CNID_ITS ---
History of Present Illness Data of Consult Service Date: 09/10/21 Requesting physician: Scott Renner Primary Care Provider: Unknown Physician HPI Reason for consult: chest pain She presents with 7/10 chest pain as well as nonproductive cough She had pneumonia one year ago and improvement with Levaquin She has just started again on Biktarvy last week for HIV after taking meds only intermittently She broke up with partner of twenty years She is taking Methadone Review of Systems Review of Systems: Yes all other systems are reviewed and are negative PMFSH Past Medical History Medical History Anemia Dementia Depression HIV (human immunodeficiency virus infection) Muscle spasms of both lower extremities TBI (traumatic brain injury) Family History Family history: reviewed and not pertinent Social History Social History Household Members: Significant Other Housing: House Alcohol intake: never Patient Tobacco Use Status: Never used Tobacco Second Hand Smoke Exposure: No Use of substances other than those prescribed or required for medical reasons: No Substance Use Type: Crack/Cocaine Advance Directives: No Advance Directives Information Provided: No Patient : No service: No Current occupational status: unemployed Meds Allergies Allergy/AdvReac Type Severity Reaction Status Date / Time No Known Allergies Allergy Unverified 06/07/20 15:19 [No Known Allergies*] Active Medications: Current Medications Acetaminophen (Acetaminophen 325 Mg Tablet) 650 mg PO Q6H PRN PRN Reason: Pain, Mild (Pain Scale 1-3) Last Admin: 09/10/21 13:59 Dose: 650 mg Documented by: Azithromycin (Azithromycin 500 Mg Tablet) 500 mg PO Q24H [facility] Ceftriaxone Sodium 1 gm/ (Sodium Chloride) 50 mls @ 100 mls/hr IV Q12H [facility] Melatonin (Melatonin 3 Mg Tablet) 6 mg PO BEDTIME PRN PRN Reason: Insomnia Methadone HCl (Methadone Hcl 20 Mg/2 Ml Oral.Conc) 30 mg PO DAILY [facility] Last Admin: 09/10/21 14:00 Dose: 30 mg Documented by: Senna (Sennosides 8.6 Mg Tablet) 17.2 mg PO BEDTIME PRN PRN Reason: Constipation Sodium Chloride (0.9 % Sodium Chloride Flush 3 Ml Syringe) 3 ml IVFLUSH QSHIFT [facility] Last Admin: 09/10/21 07:16 Dose: 3 ml Documented by: Home Medications Medication Instructions Recorded Confirmed Last Taken Type aripiprazole 15 mg tablet 15 mg PO DAILY 08/10/20 09/10/21 Unknown History fluoxetine 10 mg capsule 10 mg PO DAILY 08/10/20 09/10/21 Unknown History fluoxetine 20 mg capsule 20 mg PO DAILY 08/10/20 09/10/21 Unknown History gabapentin 600 mg tablet 1,200 mg PO TID 08/10/20 09/10/21 Unknown History hydroxyzine pamoate 25 mg capsule 25 mg PO BID PRN 08/10/20 09/10/21 Unknown History lisinopril 40 mg tablet 40 mg PO DAILY 08/10/20 09/10/21 Unknown History loratadine 10 mg tablet 1 tab PO DAILY PRN 09/10/21 09/10/21 Unknown History methadone 10 mg tablet 30 mg PO DAILY 09/10/21 Unknown History mirtazapine 15 mg tablet 1 tab PO BEDTIME 09/10/21 09/10/21 Unknown History sulfamethoxazole 800 1 tab PO MOTUWE 09/10/21 09/10/21 Unknown History mg-trimethoprim 160 mg tablet (Bactrim DS) Physical Exam Vital Signs: Vital Signs: Last Vital Signs Temp 99.0 F 09/10/21 13:53 Pulse 84 09/10/21 13:53 Resp 19 09/10/21 13:53 BP 179/102 H 09/10/21 13:53 Pulse Ox 95 09/10/21 13:53 BMI result Body Mass Index 22.1 Const: General: cooperative HENMT: Head: Yes normal to inspection Resp: Other: decreased breath sounds bases Cardio: Rate: regular rate Rhythm: regular rhythm GI: Palpation (GI): Soft to palpation and nontender Skin: General skin exam: no rashes or lesions noted Results Labs CBC & Chem 7: 09/09/21 23:44 09/09/21 23:45 Labs: Short CBC 09/09/21 Range/Units 23:44 WBC 2.6 L (4.8-10.8) X10*3/uL Hgb 10.0 L (12.0-16.0) g/dl Hct 32.7 L (37.0-47.0) % Plt Count 158 L (160-400) X10*3/uL BMP 09/09/21 23:45 Sodium 137 Potassium 4.4 Chloride 103 Carbon Dioxide 28 BUN 16 Creatinine 0.87 Calcium 8.4 Liver Function 09/09/21 Range/Units 23:45 Total Bilirubin 0.2 (0.0-1.0) mg/dL AST 31 (5-31) U/L ALT 24 (0-31) U/L Alkaline Phosphatase 104 D (39-117) U/L Albumin 3.2 L D (3.5-5.0) g/dL Urine 09/10/21 Range/Units 01:48 Urine Color YELLOW Urine Appearance CLEAR Urine pH 6.0 (5.0-8.0) Ur Specific [place] 1.025 (1.005-1.025) Urine Protein TRACE (NEG-TRACE) MG/DL Urine Glucose (UA) NEG (NEG) MG/DL Assessment and Plan (1) HIV (human immunodeficiency virus infection): Qualifiers: HIV symptom status: currently asymptomatic, with history of HIV-related illness Qualified Code(s): B20 - Human immunodeficiency virus [HIV] disease Status: Acute She has AIDS with low CD4 count and poor adherence to medication She has possible [place] as recurrent right pneumonia She has had good response to Levaquin in past (2) Community acquired pneumonia: Qualifiers: Laterality: right Lung location: middle lobe of lung Qualified Code(s): J18.9 - Pneumonia, unspecified organism Status: Acute Continue Biktarvy Consider change to Levaquin Add Mepron 1500 mg daily cover PJP as blood parameters too low for Bactrim
--- NOTE | 2021-09-10 16:14 | MHC.CM.PN ---
pt is currently living at the [place] [address] [place] which is provided by [facility]. this housing is temporary until [facility] finds more suitable housing. pt has no other svcs and does not uses any AD c ambulation. pt has family and friends that live in the area. she denies the need for vna at dc. she will need help c transportation at dc. dc plan is for patient to return to [address] svcs[address] cm to cont. to follow.
--- NOTE | 2021-09-10 16:29 | HO.ADDICTCON ---
History of Present Illness Date of Service: 09/10/2021 Chief Complaint: Chest Pain PNA Reason for Consult: OUD Requesting physician: Tracie Parada Discussed with referring provider: Yes Sources of Information: patient interviewed and chart reviewed HPI Narrative: Patient is a 36 year old female with HIV, OUD, cocaine use disorder who is currently medically admitted with pneumonia. Attends [facility] and is at 30mg daily. She states she had previously been at 45mg and dose was decreased due to patient missing a few days. Today she appears diaphoretic and reporting some malaise. She reports last dose was yesterday 09/09. Last heroin use a week ago when she used one bag She reports cocaine is her main issue and is currently using $40 every other day or so. Patient had been in recovery for 7 years and 2 years ago had a recurrence after she lost both of her parents within an month and lost her housing as well. She is currently living in a fci in [place]. Has supports within her family Providers in place at [facility] Reporting desire to work towards recovery again. Would like to restart Baclofen for cocaine use as she found it helpful in the past to address cravings. Review of Systems Constitutional: Reports as per HPI Diagnostics Vital Signs (24Hr): Vital Signs - 24 hr 09/09/21 18:23 09/10/21 01:22 09/10/21 02:00 Temperature 98.9 F 99.1 F 98.2 F Pulse Rate 93 96 89 Respiratory Rate 20 16 18 Blood Pressure 144/87 H 155/91 H 150/93 H Pulse Oximetry 96 99 97 09/10/21 06:01 09/10/21 07:17 09/10/21 12:46 Temperature 98.4 F 98.2 F 98.9 F Pulse Rate 85 81 90 Respiratory Rate 21 H 18 15 Blood Pressure 151/97 H 163/102 H 155/80 H Pulse Oximetry 98 91 L 96 09/10/21 13:53 Temperature 99.0 F Pulse Rate 84 Respiratory Rate 19 Blood Pressure 179/102 H Pulse Oximetry 95 BMI result Body Mass Index 22.1 Labs Results: 09/09/21 23:44 09/09/21 23:45 Labs: Laboratory Results - last 48 hr 09/09/21 09/09/21 09/09/21 23:43 23:44 23:44 WBC 2.6 L RBC 4.20 Hgb 10.0 L Hct 32.7 L MCV 77.9 L MCH 23.8 L MCHC 30.6 L RDW 14.7 Plt Count 158 L MPV 9.5 Immature Gran % (Auto) 0.4 Neut % (Auto) 57.1 Lymph % (Auto) 31.7 [place] % (Auto) 10.4 Eos % (Auto) 0.0 Baso % (Auto) 0.4 Lymph # (Auto) 0.8 L [place] # (Auto) 0.3 Eos # (Auto) 0.0 Baso # (Auto) 0.0 Abs Immat Gran (auto) 0.01 Absolute Neuts (auto) 1.5 L Absolute Nucleated RBC 0.000 Nucleated RBC % (auto) 0.0 PT 14.9 H INR 1.3 H D-Dimer High Sensitivty Sodium Potassium Chloride Carbon Dioxide Anion Gap BUN Creatinine Estim Creat Clear Calc Estimated GFR Random Glucose Lactic Acid Calcium Magnesium Total Bilirubin AST ALT Alkaline Phosphatase Troponin I High Sens 14.0 B-Natriuretic Peptide 44 Total Protein Albumin Beta HCG, Quant Urine Color Urine Appearance Urine pH Ur Specific [place] Urine Protein Urine Glucose (UA) Urine Ketones Urine Blood Urine Nitrite Ur Leukocyte Esterase Urine Test Urine Opiates Screen Urine Fentanyl Screen Ur Barbiturates Screen Ur Phencyclidine Scrn Ur Amphetamines Screen U Benzodiazepines Scrn Urine Cocaine Screen U Marijuana (THC) Screen COVID-19 (TIKA) COVID-19 Clin Com 09/09/21 09/10/21 09/10/21 23:45 01:48 01:48 WBC RBC Hgb Hct MCV MCH MCHC RDW Plt Count MPV Immature Gran % (Auto) Neut % (Auto) Lymph % (Auto) [place] % (Auto) Eos % (Auto) Baso % (Auto) Lymph # (Auto) [place] # (Auto) Eos # (Auto) Baso # (Auto) Abs Immat Gran (auto) Absolute Neuts (auto) Absolute Nucleated RBC Nucleated RBC % (auto) PT INR D-Dimer High Sensitivty Sodium 137 Potassium 4.4 Chloride 103 Carbon Dioxide 28 Anion Gap 10 L BUN 16 Creatinine 0.87 Estim Creat Clear Calc 72.5 Estimated GFR > 60 Random Glucose 99 Lactic Acid Calcium 8.4 Magnesium 2.1 Total Bilirubin 0.2 AST 31 ALT 24 Alkaline Phosphatase 104 D Troponin I High Sens B-Natriuretic Peptide Total Protein 9.2 H Albumin 3.2 L D Beta HCG, Quant < 2 Urine Color YELLOW Urine Appearance CLEAR Urine pH 6.0 Ur Specific [place] 1.025 Urine Protein TRACE Urine Glucose (UA) NEG Urine Ketones NEG Urine Blood NEG Urine Nitrite NEG Ur Leukocyte Esterase NEG Urine Test Urine Opiates Screen Not Detected Urine Fentanyl Screen POSITIVE H Ur Barbiturates Screen Not Detected Ur Phencyclidine Scrn Not Detected Ur Amphetamines Screen Not Detected U Benzodiazepines Scrn Not Detected Urine Cocaine Screen POSITIVE H U Marijuana (THC) Screen POSITIVE H COVID-19 (TIKA) COVID-19 Clin Com 09/10/21 09/10/21 09/10/21 01:48 01:49 02:17 WBC RBC Hgb Hct MCV MCH MCHC RDW Plt Count MPV Immature Gran % (Auto) Neut % (Auto) Lymph % (Auto) [place] % (Auto) Eos % (Auto) Baso % (Auto) Lymph # (Auto) [place] # (Auto) Eos # (Auto) Baso # (Auto) Abs Immat Gran (auto) Absolute Neuts (auto) Absolute Nucleated RBC Nucleated RBC % (auto) PT INR D-Dimer High Sensitivty Sodium Potassium Chloride Carbon Dioxide Anion Gap BUN Creatinine Estim Creat Clear Calc Estimated GFR Random Glucose Lactic Acid 0.4 L Calcium Magnesium Total Bilirubin AST ALT Alkaline Phosphatase Troponin I High Sens B-Natriuretic Peptide Total Protein Albumin Beta HCG, Quant Urine Color Urine Appearance Urine pH Ur Specific [place] Urine Protein Urine Glucose (UA) Urine Ketones Urine Blood Urine Nitrite Ur Leukocyte Esterase Urine Test NEGATIVE Urine Opiates Screen Urine Fentanyl Screen Ur Barbiturates Screen Ur Phencyclidine Scrn Ur Amphetamines Screen U Benzodiazepines Scrn Urine Cocaine Screen U Marijuana (THC) Screen COVID-19 (TIKA) Negative COVID-19 Clin Com See Note 09/10/21 09/10/21 07:05 07:05 WBC RBC Hgb Hct MCV MCH MCHC RDW Plt Count MPV Immature Gran % (Auto) Neut % (Auto) Lymph % (Auto) [place] % (Auto) Eos % (Auto) Baso % (Auto) Lymph # (Auto) [place] # (Auto) Eos # (Auto) Baso # (Auto) Abs Immat Gran (auto) Absolute Neuts (auto) Absolute Nucleated RBC Nucleated RBC % (auto) PT INR D-Dimer High Sensitivty 354 Sodium Potassium Chloride Carbon Dioxide Anion Gap BUN Creatinine Estim Creat Clear Calc Estimated GFR Random Glucose Lactic Acid Calcium Magnesium Total Bilirubin AST ALT Alkaline Phosphatase Troponin I High Sens 11.5 B-Natriuretic Peptide Total Protein Albumin Beta HCG, Quant Urine Color Urine Appearance Urine pH Ur Specific [place] Urine Protein Urine Glucose (UA) Urine Ketones Urine Blood Urine Nitrite Ur Leukocyte Esterase Urine Test Urine Opiates Screen Urine Fentanyl Screen Ur Barbiturates Screen Ur Phencyclidine Scrn Ur Amphetamines Screen U Benzodiazepines Scrn Urine Cocaine Screen U Marijuana (THC) Screen COVID-19 (TIKA) COVID-19 Clin Com Imaging Radiology Impressions: ITS Impressions Chest X-Ray 09/09/21 19:05 IMPRESSION: Persistent chronic right perihilar airspace opacity unchanged since chest x-ray 04/26/2021. Interval resolution of the lingular opacity since prior chest x-ray. Chest CTA 09/10/21 12:06 IMPRESSION: No evidence of pulmonary embolism. Right middle and right upper lobe pneumonia. Small infiltrate in the lingula. Probable hepatosplenomegaly. Bilateral axillary lymphadenopathy, left greater than right. Left thyroid nodule. Ultrasound follow-up recommended. VTE: negative Mental Status Exam Mental Status Exam Patient Appearance: Well Grooomed (thin, tooth loss) and Appropriate Patient Orientation: Person, Place, Time and Situation Patient Behavior: Appropriate and Cooperative Mood Description: Sad Affect Description: Sad Thought Process: Goal Oriented Thought Content: positive for Goal Oriented Judgement: Fair Medications Medications Current Medications Acetaminophen (Acetaminophen 325 Mg Tablet) 650 mg PO Q6H PRN PRN Reason: Pain, Mild (Pain Scale 1-3) Last Admin: 09/10/21 13:59 Dose: 650 mg Documented by: Azithromycin (Azithromycin 500 Mg Tablet) 500 mg PO Q24H [facility] Ceftriaxone Sodium 1 gm/ (Sodium Chloride) 50 mls @ 100 mls/hr IV Q12H JUANIS Melatonin (Melatonin 3 Mg Tablet) 6 mg PO BEDTIME PRN PRN Reason: Insomnia Methadone HCl (Methadone Hcl 20 Mg/2 Ml Oral.Conc) 35 mg PO DAILY JUANIS Senna (Sennosides 8.6 Mg Tablet) 17.2 mg PO BEDTIME PRN PRN Reason: Constipation Sodium Chloride (0.9 % Sodium Chloride Flush 3 Ml Syringe) 3 ml IVFLUSH QSHIFT JUANIS Last Admin: 09/10/21 07:16 Dose: 3 ml Documented by: Allergies Allergies Allergy/AdvReac Type Severity Reaction Status Date / Time No Known Allergies Allergy Unverified 06/07/20 15:19 [No Known Allergies*] Assessment & Plan Assessment & Plan (1) Opioid use disorder: Status: Acute Code(s): F11.90 - Opioid use, unspecified, uncomplicated Assessment and Plan: methadone 30mg today Increase to 35mg tomorrow --discussed case with OTP provider (2) Cocaine use disorder: Status: Acute Code(s): F14.10 - Cocaine abuse, uncomplicated Assessment and Plan: will restart baclofen prior to discharge I spent _55 minutes with the patient and/or on the patient floor today, greater than?50% of which was spent counseling/coordinating care. PMFSH Past Medical History Medical History Anemia Dementia Depression HIV (human immunodeficiency virus infection) Muscle spasms of both lower extremities TBI (traumatic brain injury) Family History Family history: reviewed and not pertinent Social History Social History Household Members: Significant Other Housing: House Alcohol intake: never Patient Tobacco Use Status: Never used Tobacco Second Hand Smoke Exposure: No Use of substances other than those prescribed or required for medical reasons: No Substance Use Type: Crack/Cocaine Advance Directives: No Advance Directives Information Provided: No Patient : No service: No Current occupational status: unemployed
[2021-09-10] MEDS: lisinopriL 40 MG TABLET PO (17:50)
[2021-09-10] MEDS: Azithromycin 500 MG TABLET PO (20:10)
[2021-09-10] MEDS: Gabapentin 600 MG TABLET 1200 MG PO (20:10)
[2021-09-10] MEDS: Mirtazapine 15 MG TABLET PO (20:11)
--- NOTE | 2021-09-10 20:42 | PC.NURSE ---
Report given to Mirtha JONES on med surg.
[2021-09-11] VITALS (7 sets, daily range): BP systolic 136–177; BP diastolic 81–96; PULSE 73–89; RESP 14–20; TEMP 36–36.9; O2SAT 94–98; BMI 22.6
[2021-09-11 05:51] LABS: Basophils Percent Auto 0.5 % (0-2); Eosinophils Percent Auto 0.9 % (0-4); Hematocrit 33.5 % (37.0-47.0); Hemoglobin 10.1 g/dl (12.0-16.0); Imm Gran Abs Auto 0.01 X10*3/uL (0.00-0.03); Imm Gran Pct Auto 0.5 % (0.0-0.4); Lymphocytes Absolute Auto 0.8 X10*3/uL (1.2-4.9); Lymphocytes Percent Auto 36.1 % (20-40); MANUAL DIFF FLAG SCAN; Mean Corpuscular HGB Conc 30.1 g/dl (31.0-35.0); Mean Corpuscular Hemoglobin 23.4 pg (27.0-33.0); Mean Corpuscular Volume 77.7 fL (80.0-98.0); Mean Platelet Volume 10.1 fL (9.4-12.3); Monocytes Absolute Auto 0.3 X10*3/uL (0.1-1.2); Monocytes Percent Auto 11.4 % (2-11); Neutrophils Absolute Auto 1.1 x10*3/uL (2.0-8.3); Neutrophils Percent Auto 50.6 % (45-73); Platelet Count 168 X10*3/uL (160-400); Red Blood Count 4.31 X10*6/uL (4.20-5.50); Red Cell Distribution Width 14.6 % (11.0-16.0); SCAN SMEAR FLAG 1
[2021-09-11 05:56] LABS: White Blood Count 2.2 X10*3/uL (4.8-10.8)
[2021-09-11 06:09] LABS: Anion Gap 9 (12-20); Blood Urea Nitrogen 13 mg/dL (9-16); Calcium 8.5 mg/dL (8.4-10.2); Carbon Dioxide 26 mmol/L (22-29); Chloride 108 mmol/L (96-108); Creatinine Clr Calc Pharmacy 75.1; Estimated Glomerular Filt Rate > 60; Glucose Random 105 mg/dL (60-115); Sodium 139 mmol/L (135-145)
[2021-09-11 06:17] LABS: SLIDE REVIEW VERIFIED
[2021-09-11] MEDS: Gabapentin 600 MG TABLET 1200 MG PO ×3 (08:27→19:47)
[2021-09-11] MEDS: FLUoxetine HCl 10 MG CAPSULE PO (08:27)
[2021-09-11] MEDS: FLUoxetine HCl 20 MG CAPSULE PO (08:27)
[2021-09-11] MEDS: Bictegrav/Emtricit/Tenofov Ala TABLET 1 TAB PO (08:31)
[2021-09-11] MEDS: lisinopriL 40 MG TABLET PO (08:32)
[2021-09-11] MEDS: methADONE HCl 20 MG/2 ML ORAL.CONC 35 MG PO (08:32)
[2021-09-11] MEDS: ARIPiprazole 15 MG TABLET PO (08:32)
[2021-09-11] MEDS: 0.9 % Sodium Chloride Flush 3 ML SYRINGE IVFLUSH ×3 (08:47→19:50)
--- NOTE | 2021-09-11 09:27 | MHC.RECOVRN ---
Check in with pt, pt denies withdrawal symptoms at this time. Pt reports pain when breathing and at rest. Pt states The doctor said I'll discharge tomorrow, I don't feel good enough to go back to the half-way. Pt encouraged to rest. Discussed with Jessica Brown APRN.
[2021-09-11] MEDS: levoFLOXacin/D5W 750 MG/150 ML PIGGYBACK 100 MG IV (10:58)
--- NOTE | 2021-09-11 11:09 | HO.PM.IMPN ---
Subjective Subjective Date of Service: 09/11/21 Interval History: seen and examined this AM reports pain with cough denies fevers or chills Review of Systems negative except HPI Physical Exam Vital Signs: Vital Signs: Last Vital Signs Temp 98.4 F 09/11/21 07:33 Pulse 79 09/11/21 07:33 Resp 16 09/11/21 07:33 BP 136/82 09/11/21 07:33 Pulse Ox 96 09/11/21 07:33 BMI result Body Mass Index 22.6 Const: Other: General - no acute distress, appears comfortable Cardiovascular - regular rate and rhythm, S1-S2 Lungs - dim sounds R side Abdomen - soft, nontender, no rebound or guarding Extremities - no edema bilaterally Neuro - awake and alert, no focal deficits Objective Data Active Medications Acetaminophen (Acetaminophen 325 Mg Tablet) 650 mg PO Q6H PRN PRN Reason: Pain, Mild (Pain Scale 1-3) Last Admin: 09/10/21 13:59 Dose: 650 mg Documented by: VAN Aripiprazole (Aripiprazole 15 Mg Tablet) 15 mg PO DAILY [facility] Last Admin: 09/11/21 08:32 Dose: 15 mg Documented by: BALBIR Atovaquone (Atovaquone 750 Mg/5 Ml Oral.Susp) 1,500 mg PO DAILY [facility] Bictegravir/Emtricitabine/Tenofovir (Bictegrav/Emtricit/Tenofov Ala Tablet) 1 tab PO DAILY [facility] Last Admin: 09/11/21 08:31 Dose: 1 tab Documented by: BALBIR Fluoxetine HCl (Fluoxetine Hcl 10 Mg Capsule) 10 mg PO DAILY [facility] Last Admin: 09/11/21 08:27 Dose: 10 mg Documented by: BALBIR Fluoxetine HCl (Fluoxetine Hcl 20 Mg Capsule) 20 mg PO DAILY [facility] Last Admin: 09/11/21 08:27 Dose: 20 mg Documented by: BALBIR Gabapentin (Gabapentin 600 Mg Tablet) 1,200 mg PO TID [facility] Last Admin: 09/11/21 08:27 Dose: 1,200 mg Documented by: BALBIR Hydroxyzine HCl (Hydroxyzine Hcl 25 Mg Tablet) 25 mg PO BID PRN PRN Reason: Anxiety Levofloxacin (Levaquin) 750 mg in 150 mls @ 100 mls/hr IV Q24H [facility] Last Admin: 09/11/21 10:58 Dose: 100 mls/hr Documented by: BALBIR Lisinopril (Lisinopril 40 Mg Tablet) 40 mg PO DAILY [facility]; Protocol Last Admin: 09/11/21 08:32 Dose: 40 mg Documented by: BALBIR Loratadine (Loratadine 10 Mg Tablet) 10 mg PO DAILY PRN PRN Reason: Allergic Symptoms Melatonin (Melatonin 3 Mg Tablet) 6 mg PO BEDTIME PRN PRN Reason: Insomnia Methadone HCl (Methadone Hcl 20 Mg/2 Ml Oral.Conc) 35 mg PO DAILY [facility] Last Admin: 09/11/21 08:32 Dose: 35 mg Documented by: BALBIR Mirtazapine (Mirtazapine 15 Mg Tablet) 15 mg PO BEDTIME [facility] Last Admin: 09/10/21 20:11 Dose: 15 mg Documented by: CALISTA Senna (Sennosides 8.6 Mg Tablet) 17.2 mg PO BEDTIME PRN PRN Reason: Constipation Sodium Chloride (0.9 % Sodium Chloride Flush 3 Ml Syringe) 3 ml IVFLUSH QSHIFT [facility] Last Admin: 09/11/21 08:47 Dose: 3 ml Documented by: BALBIR Labs CBC & Chem 7: 09/11/21 05:26 09/11/21 05:26 Labs: Laboratory Results - last 24 hr 09/11/21 09/11/21 05:26 05:26 MCV 77.7 L MCH 23.4 L MCHC 30.1 L RDW 14.6 Plt Count 168 MPV 10.1 Immature Gran % (Auto) 0.5 H Neut % (Auto) 50.6 Lymph % (Auto) 36.1 [place] % (Auto) 11.4 H Eos % (Auto) 0.9 Baso % (Auto) 0.5 Lymph # (Auto) 0.8 L [place] # (Auto) 0.3 Eos # (Auto) 0.0 Baso # (Auto) 0.0 Abs Immat Gran (auto) 0.01 Absolute Neuts (auto) 1.1 L Absolute Nucleated RBC 0.000 Nucleated RBC % (auto) 0.0 Smear Tech's Comments VERIFIED Anion Gap 9 L Estim Creat Clear Calc 75.1 Estimated GFR > 60 Random Glucose 105 Calcium 8.5 Microbiology Microbiology Results: Microbiology 09/09/21 23:43 Blood Culture - Preliminary Blood - Venous No growth after 24 hours. 09/09/21 23:43 Blood Culture - Preliminary Blood - Venous No growth after 24 hours. Assessment and Plan (1) HIV (human immunodeficiency virus infection): Status: Acute (2) Community acquired pneumonia: Status: Acute Assessment and Plan: This is a 36 yo F with a PMH of HIV/AIDS who is admitted for pneumonia. 1. Pneumonia in an immunecompromised patient concern over [place], recurrent IV levaquin (stop rocephin/zithromax) f/u cultures 2. HIV/AIDS Biktarvy Mepron 1500mg added ID on board 3. Opiate use disorder methadone Full Code DVT pptx, Lovenox Quality Stroke Does the patient have a stroke diagnosis?: No VTE Prior VTE?: No VTE Risk Level:: Medical - low VTE Device Contraindication: N/A - Device Ordered VTE Drug Contraindication: Treatment Not Indicated
--- NOTE | 2021-09-11 11:54 | MHC.CM.PN ---
PER MD ROUNDS, PLAN IS DC HOME TOMORROW- NO SERVICES. SHE MAY NEED [facility] [place] [address] [facility] [place] [id number]
[2021-09-11 12:39] LABS: TSH reflex Free T4 0.67 uIU/mL (0.32-4.0)
[2021-09-11] MEDS: Atovaquone 750 MG/5 ML ORAL.SUSP 1500 MG PO (12:50)
[2021-09-11] MEDS: Enoxaparin Sodium 40 MG/0.4 ML SYRINGE SUBCUT (12:55)
[2021-09-11] MEDS: Mirtazapine 15 MG TABLET PO (19:48)
[2021-09-12 03:47] VITALS: BP 173/100; PULSE 83; RESP 18; TEMP 36.8; O2SAT 95
[2021-09-12] MEDS: hydrOXYzine HCL 25 MG TABLET PO (04:14)
[2021-09-12 04:29] VITALS: BP 173/100; PULSE 83
[2021-09-12] MEDS: lisinopriL 40 MG TABLET PO ×2 (04:29→08:34)
[2021-09-12 08:00] VITALS: BP 172/92; PULSE 81; RESP 15; TEMP 37; O2SAT 94
[2021-09-12] MEDS: Atovaquone 750 MG/5 ML ORAL.SUSP 1500 MG PO (08:33)
[2021-09-12 08:34] VITALS: BP 172/92; PULSE 81
[2021-09-12] MEDS: Bictegrav/Emtricit/Tenofov Ala TABLET 1 TAB PO (08:34)
[2021-09-12] MEDS: methADONE HCl 20 MG/2 ML ORAL.CONC 35 MG PO (08:34)
[2021-09-12] MEDS: FLUoxetine HCl 20 MG CAPSULE PO (08:34)
[2021-09-12] MEDS: Gabapentin 600 MG TABLET 1200 MG PO (08:34)
[2021-09-12] MEDS: ARIPiprazole 15 MG TABLET PO (08:34)
[2021-09-12] MEDS: FLUoxetine HCl 10 MG CAPSULE PO (08:34)
[2021-09-12] MEDS: levoFLOXacin/D5W 750 MG/150 ML PIGGYBACK 100 MG IV (08:35)
[2021-09-12] MEDS: 0.9 % Sodium Chloride Flush 3 ML SYRINGE IVFLUSH (08:42)
--- NOTE | 2021-09-12 10:33 | MHC.RECOVRN ---
Attempted to check in with patient. Pt asleep. Will continue to follow.
[2021-09-12 11:35] VITALS: BP 176/90; PULSE 83; RESP 18; TEMP 36.7; O2SAT 97
[2021-09-12] MEDS: Enoxaparin Sodium 40 MG/0.4 ML SYRINGE SUBCUT (12:39)
[2021-09-12 12:53] VITALS: BP 176/90; PULSE 83
[2021-09-12] MEDS: amLODIPine Besylate 5 MG TABLET PO (12:53)
[2021-09-12 13:02] LABS: Basophils Percent Auto 0.5 % (0-2); Eosinophils Percent Auto 0.5 % (0-4); Hematocrit 34.7 % (37.0-47.0); Hemoglobin 10.6 g/dl (12.0-16.0); Imm Gran Abs Auto 0.01 X10*3/uL (0.00-0.03); Imm Gran Pct Auto 0.5 % (0.0-0.4); Lymphocytes Absolute Auto 0.8 X10*3/uL (1.2-4.9); Lymphocytes Percent Auto 39.6 % (20-40); Mean Corpuscular HGB Conc 30.5 g/dl (31.0-35.0); Mean Corpuscular Hemoglobin 23.8 pg (27.0-33.0); Mean Corpuscular Volume 77.8 fL (80.0-98.0); Mean Platelet Volume 9.2 fL (9.4-12.3); Monocytes Absolute Auto 0.1 X10*3/uL (0.1-1.2); Monocytes Percent Auto 6.8 % (2-11); Neutrophils Absolute Auto 1.1 x10*3/uL (2.0-8.3); Neutrophils Percent Auto 52.1 % (45-73); Platelet Count 199 X10*3/uL (160-400); Red Blood Count 4.46 X10*6/uL (4.20-5.50); Red Cell Distribution Width 14.5 % (11.0-16.0)
[2021-09-12 13:03] LABS: White Blood Count 2.1 X10*3/uL (4.8-10.8)
--- NOTE | 2021-09-12 13:30 | MHC.RECOVRN ---
Met with pt after being notified of possible dc today. Pt states I don't know when I'm going, my blood pressure is really high. Pt provided with last dose letter. Jessica Brown APRN aware.
--- NOTE | 2021-09-12 13:34 | PM.DS ---
DS: Providers Provider Date of Service: 09/12/21 <MARGUERITE Babb - Last Filed: 09/12/21 18:28> Date of admission: 09/10/21 05:04 <MARGUERITE Babb - Last Filed: 09/12/21 18:28> Date of discharge: 09/12/21 <MARGUERITE Babb - Last Filed: 09/12/21 18:28> Primary care physician: Unknown Physician <MARGUERITE Babb - Last Filed: 09/12/21 18:28> Consults: 09/10/21 05:03 Consult to Infectious Diseases Routine Consulting Provider: Debra Alston Reason for consultation: hx HIV; recently started HAART; PNA 09/10/21 15:51 Addiction Medicine Routine Consulting Provider: Jessica Brown Reason for consultation: methdone use Has provider been notified: No <MARGUERITE Babb - Last Filed: 09/12/21 18:28> Attending physician on discharge: Gamailel Peters <MARGUERITE Babb - Last Filed: 09/12/21 18:28> Discharging clinician: Mira Rivero <MARGUERITE Babb - Last Filed: 09/12/21 18:28> DS: Diagnosis Discharge Diagnosis (1) HIV (human immunodeficiency virus infection): Status: Acute <MARGUERITE Babb - Last Filed: 09/12/21 18:28> (2) Community acquired pneumonia: Status: Acute <MARGUERITE Babb - Last Filed: 09/12/21 18:28> DS: Summary Hospital Course Hospital Course: From H&P on day of admission 36-year-old female with a past medical history of hypertension, HIV -recently started on Biktarvy, anxiety, depression, history of streptococcal pneumonia with bacteremia about a year ago presented to the hospital today with a chief complaint of chest pain.? Patient reports that over the past 3 days she has been having intermittent episodes of chest pain, located on the left side of the chest, sharp in nature, worsens with coughing; also had shortness of breath; complains of cough.? Denies any sputum.? Denies any numbness tingling or focal weakness.? Denies any recent travel or sick contacts.? Patient reports that she was off her HIV medications for about a ER and recently started about a week ago.? Denies any rash, nausea vomiting or diarrhea.? patient Reported that she had had CD4 count checked about in May and was noted to be around 300.? Also says that prior to that it was 94, improved now. Review of all other systems is negative except mentioned above ER course: Per ER team patient's vitals are stable, labs essentially benign, troponin negative, EKG nonischemic, chest x-ray showed findings concerning for pneumonia similar to prior x-ray.? Given immunocompromised state and recently started on Biktarvy patient was empirically started on ceftriaxone and azithromycin.? Patient also received Bactrim. pneumonia. possible GALINA. patient was initially started on azithromycin and ceftriaxone. she was seen in consultation by ID who recommended changing to levaquin and mepron. She has not required supplemental oxygen. Blood cultures have been negative x 48 hours. ID recommended 4 weeks of treatment with mepron and 2 weeks of treatment with levaquin upon discharge. she should call to schedule follow up with PCP and with ID. Of note QTC was checked and was under 450. HTN. blood pressure was noted to be uncontrolled on home dose of lisinopril. 5 mg daily of Norvasc was added for better blood control. She should call to schedule appointment with her PCP for close blood pressure monitoring polysubstance abuse. patient was seen by addiction medicine and dose of methadone was adjusted. HIV - continued on biktarvy, stressed importance of compliance. incidental note of left thyroid nodule on imaging. tsh within normal limits. recommend outpatient US for closer evaluation. <MARGUERITE Babb - Last Filed: 09/12/21 18:28> Time Spent with Patient Time attestation: Total time spent providing and/or coordinating discharge services: <MARGUERITE Babb - Last Filed: 09/12/21 18:28> Discharge coordination time: Greater than 30 minutes <MARGUERITE Babb - Last Filed: 09/12/21 18:28> Quality: Stroke Does the patient have a stroke diagnosis?: No <MARGUERITE Babb - Last Filed: 09/12/21 18:28> Physical Exam Vital Signs: Vital Signs: Last Vital Signs Temp 98.0 F 09/12/21 11:35 Pulse 83 09/12/21 12:53 Resp 18 09/12/21 11:35 BP 176/90 H 09/12/21 12:53 Pulse Ox 97 09/12/21 11:35 BMI result Body Mass Index 22.6 <MARGUERITE Babb - Last Filed: 09/12/21 18:28> Const: General: cooperative, no acute distress, alert and awake <MARGUERITE Babb - Last Filed: 09/12/21 18:28> Nutritional Appearance: well nourished <MARGUERITE Babb - Last Filed: 09/12/21 18:28> Orientation/consciousness: patient oriented x3 <MARGUERITE Babb - Last Filed: 09/12/21 18:28> HENMT: Head: Yes normocephalic and Yes atraumatic <MARGUERITE Babb - Last Filed: 09/12/21 18:28> Eyes: Sclerae: sclerae normal <MARGUERITE Babb - Last Filed: 09/12/21 18:28> Resp: Effort & Inspection: normal respiratory effort and no respiratory distress <MARGUERITE Babb - Last Filed: 09/12/21 18:28> Cardio: Rate: regular rate <MARGUERITE Babb - Last Filed: 09/12/21 18:28> Rhythm: regular rhythm <MARGUERITE Babb - Last Filed: 09/12/21 18:28> GI: Palpation (GI): Soft to palpation and nontender <MARGUERITE Babb - Last Filed: 09/12/21 18:28> Neuro: General: patient oriented x3 <MARGUERITE Babb Last Filed: 09/12/21 18:28> Cranial nerves: Yes CN's II-XII intact bilaterally and Yes Bilaterally intact EOM present <MARGUERITE Babb - Last Filed: 09/12/21 18:28> DS: Data Data Completed and Pending Completed studies during hospitalization [Text1]: Procedures Transfusion of Nonautologous Red Blood Cells into Peripheral Vein, Percutaneous Approach (08/10/20) <MARGUERITE Babb - Last Filed: 09/12/21 18:28> Labs on day of discharge: Laboratory Results - last 24 hr 09/12/21 12:55 WBC 2.1 L RBC 4.46 Hgb 10.6 L Hct 34.7 L MCV 77.8 L MCH 23.8 L MCHC 30.5 L RDW 14.5 Plt Count 199 MPV 9.2 L Immature Gran % (Auto) 0.5 H Neut % (Auto) 52.1 Lymph % (Auto) 39.6 [place] % (Auto) 6.8 Eos % (Auto) 0.5 Baso % (Auto) 0.5 Lymph # (Auto) 0.8 L [place] # (Auto) 0.1 Eos # (Auto) 0.0 Baso # (Auto) 0.0 Abs Immat Gran (auto) 0.01 Absolute Neuts (auto) 1.1 L Absolute Nucleated RBC 0.000 Nucleated RBC % (auto) 0.0 Preliminary micro results at discharge 09/09/21 23:43 Blood Culture - Preliminary Blood - Venous No growth after 48 hours. 09/09/21 23:43 Blood Culture - Preliminary Blood - Venous No growth after 48 hours. <MARGUERITE Babb - Last Filed: 09/12/21 18:28> Discharge Plan Discharge Patient Disposition: Home, Self-Care <MARGUERITE Babb - Last Filed: 09/12/21 18:28> Discharge Diagnosis: pneumonia HIV/aids polysubstance abuse <MARGUERITE Babb - Last Filed: 09/12/21 18:28> pneumonia HIV/aids polysubstance abuse <Gamaliel Peters MD - Last Filed: 09/16/21 08:52> Referrals: Debra Alston MD [Physician] - 1 Week Physician,Unknown J [Primary Care Provider] - 1 Week <MARGUERITE Babb - Last Filed: 09/12/21 18:28> Discharge Medications: New atovaquone 750 mg/5 mL suspension 1,500 mg PO DAILY 30 Days Qty: 300 RF: 0 levofloxacin 750 mg tablet 750 mg PO DAILY 14 Days Qty: 14 RF: 0 amlodipine [Norvasc] 5 mg tablet 5 mg PO DAILY 30 Days Qty: 30 RF: 0 Continued gabapentin 600 mg Tablet 1,200 mg PO TID RF: 0 fluoxetine 10 mg Capsule 10 mg PO DAILY RF: 0 lisinopril 40 mg Tablet 40 mg PO DAILY RF: 0 fluoxetine 20 mg Capsule 20 mg PO DAILY RF: 0 hydroxyzine pamoate 25 mg Capsule 25 mg PO BID PRN (Reason: Anxiety) RF: 0 aripiprazole 15 mg Tablet 15 mg PO DAILY RF: 0 Biktarvy 50-200-25 mg Tablet 1 tab PO DAILY Qty: 30 RF: 3 mirtazapine 15 mg tablet 1 tab PO BEDTIME RF: 0 loratadine 10 mg tablet 1 tab PO DAILY PRN (Reason: Allergic Symptoms) RF: 0 methadone 10 mg Tablet 30 mg PO DAILY RF: 0 Discontinued sulfamethoxazole-trimethoprim [Bactrim DS] 800-160 mg tablet 1 tab PO MOTUWE RF: 0 <MARGUERITE Babb - Last Filed: 09/12/21 18:28> Discharge Orders: Discharge Order (Routine); Ordered 09/12/21 Ordered By: Mira Rivero <MARGUERITE Babb - Last Filed: 09/12/21 18:28> Diet: regular diet <MARGUERITE Babb - Last Filed: 09/12/21 18:28> regular diet <Gamaliel Peters MD - Last Filed: 09/16/21 08:52> Activity on Discharge: As tolerated <MARGUERITE Babb - Last Filed: 09/12/21 18:28> As tolerated <Gamaliel Peters MD - Last Filed: 09/16/21 08:52> Stand Alone Forms: Patient Portal Discharge page <MARGUERITE Babb - Last Filed: 09/12/21 18:28> Care Plan Goals: see below <MARGUERITE Babb - Last Filed: 09/12/21 18:28> Health Concerns: pneumonia polysubstance abuse HIV uncontrolled HTN <MARGUERITE Babb - Last Filed: 09/12/21 18:28> Plan of Treatment: complete course of antibiotics. 4 weeks of mepron and 2 weeks of levaquin call to schedule follow up appointment with ID and PCP for follow up you have been started on an additional medication for your blood pressure take all medications as prescribed abstain from all substance use left thyroid nodule - recommend outpatient Ultrasound for evaluation <MARGUERITE Babb - Last Filed: 09/12/21 18:28> Assessment: see discharge summary Attending Attestation: I have personally seen and examined the patient independently (on the date of service as documented by NPP), reviewed the NPP history, exam and?MDM and agree with the assessment and plan as?written <MARGUERITE Babb - Last Filed: 09/12/21 18:28> Discharge Date/Time: 09/12/21 14:43 <MARGUERITE Babb - Last Filed: 09/12/21 18:28>
--- NOTE | 2021-09-12 13:53 | MHC.CM.PN ---
nurse care management note discharge home today with no no vna met with recovery nurse and last dose methadone letter given to patient to bring ot her methadone clinic , also patient met with cathryn caraballo and will follow up qith making appointment. met with her , she reported she is trying to get transportation , and if she can not she will let me kn ow
--- NOTE | 2021-09-12 14:28 | MHC.CM.PN ---
patient is unable to get transportation [facility] van transportation will take her and bring her to the address given anisha patient [id number] [facility]
[2021-09-12 14:45] LABS: Anion Gap 10 (12-20); Blood Urea Nitrogen 14 mg/dL (9-16); Calcium 8.8 mg/dL (8.4-10.2); Carbon Dioxide 26 mmol/L (22-29); Chloride 104 mmol/L (96-108); Creatinine Clr Calc Pharmacy 63.1; Estimated Glomerular Filt Rate > 60; Glucose Random 146 mg/dL (60-115); Potassium 4.4 mmol/L (3.3-5.1); Sodium 136 mmol/L (135-145)
== END 2021-09-12 14:43 | disposition home or self-care (01) | DRG 975 ==
LOC: HO.ED 09-10 04:40 → HO.EDOVER 09-10 05:15 → HO.S3 09-10 19:54
PROVIDERS: Family Medicine; Physician Assistant Medical; Admitting Provider Hospitalist; Emergency Provider Internal Medicine; PCP Family Medicine; Visit Provider Physician Assistant Medical
DX: B20 Human immunodeficiency virus [HIV] disease (principal); J18.9 Pneumonia, unspecified organism; A31.0 Pulmonary mycobacterial infection; F11.20 Opioid dependence, uncomplicated; F41.9 Anxiety disorder, unspecified; F32.A Depression, unspecified; Z20.822 Contact with and (suspected) exposure to COVID-19; Z91.14 Patient's other noncompliance with medication regimen; Z87.820 Personal history of traumatic brain injury; Z87.891 Personal history of nicotine dependence; Z79.899 Other long term (current) drug therapy
CPT/HCPCS: 36415; 71046; 71275; 80048; 80053; 80307; 81003; 81025; 83605; 83735; 83880; 84443; 84484; 84702; 85025; 85379; 85610; 87040; 87635; 93005; 96365; 96366; 96367; 96375; 99285; J0456; J0696; J1650; J1956; J3370; Q9967